=== PATIENT | female | born 1980 | race Caucasian/White ===

== ENCOUNTER 2016-04-07 14:34 | Emergency (ER) | payer SELFPAY ==
--- NOTE | 2016-04-07 14:54 | ER Document Report ---
ED Medical Screen (RME) - General Stated Complaint: ABSCESS Mode of Arrival: Ambulatory Information source: Patient Notes: 36 y/o F presents to ED c/o abscess to left arm over the last 3 weeks. Reports hx of type 2 DM and HTN but has been out of medication for the last 3 weeks. I have greeted and performed a rapid initial assessment of this patient. A comprehensive ED assessment and evaluation of the patient, analysis of test results and completion of the medical decision making process will be conducted by additional ED providers. TRAVEL OUTSIDE OF THE [place] IN LAST 30 DAYS: No - Related Data Allergies/Adverse Reactions: sulfamethoxazole [From Septra] Allergy (Intermediate, Verified 01/23/16 11:01) Hives trimethoprim [From Septra] Allergy (Intermediate, Verified 01/23/16 11:01) Hives Past Medical History - Social History Family history: Reviewed & Not Pertinent - Past Medical History Cardiac Medical History: Reports: Hx Hypertension Pulmonary Medical History: Reports: Hx Asthma Neurological Medical History: Reports: Hx Migraine Endocrine Medical History: Reports: Hx Diabetes Mellitus Type 1, Hx Diabetes Mellitus Type 2 - controlled with diet and insulin, Hx Hypothyroidism Musculoskeltal Medical History: Reports Hx Arthritis, Reports Hx Musculoskeletal Trauma Skin Medical History: Reports Hx Cellulitis Past Surgical History: Reports: Hx Myringotomy - Immunizations Immunizations up to date: Yes Hx Diphtheria, Pertussis, Tetanus Vaccination: Yes Physical Exam - Vital signs Vitals: Temp Pulse Resp BP Pulse Ox 99.2 F 107 H 20 197/118 H 99 04/07/16 14:42 04/07/16 14:42 04/07/16 14:42 04/07/16 14:42 04/07/16 14:42 - General General appearance: Appears well, Alert In distress: None - Respiratory Respiratory status: No respiratory distress - Cardiovascular Rhythm: Regular Pulses: Normal: Radial Normal capillary refill: Yes - Neurological Neuro grossly intact: Yes Cognition: Normal Orientation: AAOx4 [place] Coma Scale Eye Opening: Spontaneous [place] Coma Scale Verbal: Oriented [place] Coma Scale Motor: Obeys Commands [place] Coma Scale Total: 15 Speech: Normal Motor strength normal: LUE, RUE, LLE, RLE Course - Vital Signs Vital signs: Temp Pulse Resp BP Pulse Ox 99.2 F 107 H 20 197/118 H 99 04/07/16 14:42 04/07/16 14:42 04/07/16 14:42 04/07/16 14:42 04/07/16 14:42
[2016-04-07 16:00] LABS: ABSOLUTE BASOPHILS # (AUTO) 0.1 10^3/uL (0.0-0.2); ABSOLUTE EOSINOPHILS # (AUTO) 0.1 10^3/uL (0.0-0.6); ABSOLUTE LYMPHOCYTES (AUTO) 2.4 10^3/uL (0.5-4.7); ABSOLUTE MONOCYTES (AUTO) 0.7 10^3/uL (0.1-1.4); ABSOLUTE NEUT (AUTO) 7.4 10^3/uL (1.7-8.2); BASOPHILS % (AUTO) 0.6 % (0-2); EOSINOPHILS % (AUTO) 1.2 % (0-6); HEMATOCRIT 44.2 % (36.0-47.0); HEMOGLOBIN 14.8 g/dL (12.0-15.5); HGB HCT DIFFERENCE 0.2; LYMPHOCYTES % (AUTO) 22.1 % (13-45); MEAN CORPUSCULAR HEMOGLOBIN 28.9 pg (27.0-33.4); MEAN CORPUSCULAR HGB CONC 33.6 g/dL (32.0-36.0); MEAN CORPUSCULAR VOLUME 86 fl (80-97); MONOCYTES % (AUTO) 6.9 % (3-13); RED BLOOD COUNT 5.14 10^6/uL (3.72-5.28); RED CELL DISTRIBUTION WIDTH 15.4 % (11.5-14.0); SEGMENTED NEUTROPHILS % (AUTO) 69.2 % (42-78); WHITE BLOOD COUNT 10.7 10^3/uL (4.0-10.5)
[2016-04-07 16:12] LABS: APPEARANCE,URINE SLIGHTLY-CLOUDY; BILIRUBIN,URINE NEGATIVE (NEGATIVE); GLUCOSE, URINE >=500 mg/dL (NEGATIVE); KETONES,URINE NEGATIVE (NEGATIVE); LEUKOCYTE ESTERASE,URINE TRACE (NEGATIVE); NITRITE,URINE NEGATIVE (NEGATIVE); PROTEIN,URINE NEGATIVE (NEGATIVE); URINE SPECIFIC GRAVITY 1.031; UROBILINOGEN,URINE NEGATIVE mg/dL (<2.0)
[2016-04-07 16:19] LABS: ALANINE AMINOTRANSFERASE 46 U/L (9-52); ALBUMIN 3.8 g/dL (3.5-5.0); ALKALINE PHOSPHATASE 86 U/L (38-126); ANION GAP 6 (5-19); ASPARTATE AMINO TRANSFERASE 25 U/L (14-36); BILIRUBIN,TOTAL 1.5 mg/dL (0.2-1.3); BLOOD UREA NITROGEN 9 mg/dL (7-20); CALCIUM 9.2 mg/dL (8.4-10.2); CARBON DIOXIDE 30 mmol/L (22-30); CHLORIDE 100 mmol/L (98-107); CREATININE RESULT 0.61 mg/dL (0.52-1.25); GLUCOSE 321 mg/dL (75-110); POTASSIUM 4.5 mmol/L (3.6-5.0); SODIUM 136.3 mmol/L (137-145); TOTAL PROTEIN 6.6 g/dL (6.3-8.2)
[2016-04-07] MEDS ORDERED: INSULIN GLARGINE,HUM.REC.ANLOG 1,000 UNIT/10 ML UNIT SUBCUT ONE (22:40)
[2016-04-07] MEDS ORDERED: HYDROCHLOROTHIAZIDE 12.5 MG CAPSULE PO ONE (22:41)
[2016-04-07] MEDS ORDERED: LISINOPRIL 10 MG TABLET PO ONE (22:41)
[2016-04-07] MEDS ORDERED: METFORMIN HCL 500 MG TABLET PO ONE (22:41)
[2016-04-07 22:49] VITALS: BP 155/111
--- NOTE | 2016-04-07 22:57 | ER Document Report ---
ED Skin Rash/Insect Bite/Abscs - General Chief Complaint: Abscess Stated Complaint: ABSCESS Time seen by provider: 22:52 Mode of Arrival: Ambulatory Information source: Patient Notes: 36-year-old female presents to ED for abscess to the left axilla for over 3 weeks. She is a type II diabetic with high blood pressure but is out of her blood pressure and diabetes medicine for at least 3 weeks. TRAVEL OUTSIDE OF THE [place] IN LAST 30 DAYS: No - HPI Patient complains to provider of: Tender/swollen area Onset: Other - 3 weeks Onset/Duration: Gradual Quality of pain: Throbbing Severity: Moderate Pain Level: 4 Skin Character: Abscess Quality of rash: Painful Identify cause: No Exacerbated by: Movement Relieved by: Denies Similar symptoms previously: Yes - Related Data Allergies/Adverse Reactions: sulfamethoxazole [From Octra] Allergy (Intermediate, Verified 04/07/16 14:53) Hives trimethoprim [From Octra] Allergy (Intermediate, Verified 04/07/16 14:53) Hives Past Medical History - General Information source: Patient - Social History Smoking Status: Current Every Day Smoker Cigarette use (# per day): Yes - half pack per day Chew tobacco use (# tins/day): No Smoking Education Provided: Yes - (2 minutes Drug Abuse: None Occupation: [employer] Lives with: Friend Family History: Arthritis, CAD, CVA, DM, Hyperlipidemia, Hypertension, Malignancy, Thyroid Disfunction Patient has suicidal ideation: No Patient has homicidal ideation: No - Past Medical History Cardiac Medical History: Reports: Hx Hypertension Pulmonary Medical History: Reports: Hx Asthma EENT Medical History: Reports: None Neurological Medical History: Reports: Hx Migraine Endocrine Medical History: Reports: Hx Diabetes Mellitus Type 2 - controlled with diet and insulin, Hx Hypothyroidism Renal/ Medical History: Reports: None Malignancy Medical History: Reports: None GI Medical History: Reports: None Musculoskeltal Medical History: Reports Hx Arthritis, Reports Hx Musculoskeletal Trauma - Fractured ankle and foot Skin Medical History: Reports Hx Cellulitis - Multiple abscesses Psychiatric Medical History: Reports: None Traumatic Medical History: Reports: Hx Fractures - Left ankle and foot Infectious Medical History: Reports: None Past Surgical History: Reports: Hx Myringotomy, Other - Abscess opened in the OR to the groin - Immunizations Immunizations up to date: Yes Hx Diphtheria, Pertussis, Tetanus Vaccination: Yes Hx Pneumococcal Vaccination: 10/13/06 Review of Systems - Review of Systems Constitutional: No symptoms reported EENT: No symptoms reported Cardiovascular: No symptoms reported Respiratory: No symptoms reported Gastrointestinal: No symptoms reported Genitourinary: No symptoms reported Female Genitourinary: No symptoms reported Musculoskeletal: No symptoms reported Skin: Other - Abscess to left axilla Hematologic/Lymphatic: No symptoms reported Neurological/Psychological: No symptoms reported Physical Exam - Vital signs Vitals: Temp Pulse Resp BP Pulse Ox 99.2 F 107 H 20 197/118 H 99 04/07/16 14:42 04/07/16 14:42 04/07/16 14:42 04/07/16 14:42 04/07/16 14:42 Interpretation: Hypertensive - 155/111 but patient states she has not had her blood pressure medicine in 3 weeks,, Tachycardic - 101 patient is in pain from an abscess Notes: Blood pressure 155/111 pulse 101 98.3 pulse ox 97 when I examined her. Patient has not had her diabetes or her blood pressure medicine 3 weeks - General General appearance: Appears well, Alert - HEENT Head: Normocephalic, Atraumatic Eyes: Normal Pupils: PERRL - Respiratory Respiratory status: No respiratory distress Chest status: Nontender Breath sounds: Normal Chest palpation: Normal - Cardiovascular Rhythm: Regular Heart sounds: Normal auscultation Murmur: No - Abdominal Inspection: Normal Distension: No distension Bowel sounds: Normal Tenderness: Nontender Organomegaly: No organomegaly - Back Back: Normal, Nontender - Extremities General upper extremity: Normal inspection, Nontender, Normal color, Normal ROM , Normal temperature General lower extremity: Normal inspection, Nontender, Normal color, Normal ROM , Normal temperature, Normal weight bearing. No: Sherie's sign - Neurological Neuro grossly intact: Yes Cognition: Normal Orientation: AAOx4 [place] Coma Scale Eye Opening: Spontaneous [place] Coma Scale Verbal: Oriented [place] Coma Scale Motor: Obeys Commands [place] Coma Scale Total: 15 Speech: Normal Motor strength normal: LUE, RUE, LLE, RLE Sensory: Normal - Psychological Associated symptoms: Normal affect, Normal mood - Skin Skin Temperature: Warm Skin Moisture: Dry Skin Color: Normal Skin irregularity: Abscess Location of irregularity: Extremities - Left axilla Course - Vital Signs Vital signs: Temp Pulse Resp BP Pulse Ox 98.3 F 101 H 18 155/111 H 97 04/07/16 22:33 04/07/16 22:33 04/07/16 22:15 04/07/16 22:49 04/07/16 22:33 - Laboratory Result Diagrams: 04/07/16 15:42 04/07/16 15:42 Laboratory results interpreted by me: 04/07/16 04/07/16 04/07/16 15:42 15:42 15:42 WBC 10.7 H RDW 15.4 H Sodium 136.3 L Glucose 321 H Total Bilirubin 1.5 H Urine Glucose (UA) >=500 H Urine Blood SMALL H Ur Leukocyte Esterase TRACE H Procedures - Incision and Drainage Left axilla Time completed: 23:20 Type: Simple Anesthetic type: 1% Lidocaine mL's of anesthetic: 5 Blade size: 11 I&D procedure: Other Incision Method: Incision made by scalpel Amount/type of drainage: large amount of purulent drainage foul-smelling Discharge - Discharge Clinical Impression: Abscess of left axilla Disposition: HOME, SELF-CARE Additional Instructions: ABSCESS: You have an abscess (boil). This a pus-forming infection, usually due to staph. Some boils may be left to drain on their own, but most require lancing. From the time the tender lump first appears, it may be three or four days before the abscess is ready to reza. Local heat and rest help at this stage of treatment. An antibiotic may prevent spread of the infection. Once the abscess is opened, packing may be placed into it. This is done so pus is not sealed inside by premature closure of the cavity. The packing will be removed at your follow-up visit or you may be advised to remove it yourself at home. Sometimes this packing must be replaced a few times during healing. The wound will heal with surprisingly little scar. Depending on the size and location of an abscess, healing can take one to four weeks. You may shower and wash the area around the incision site two or three times a day. Antibiotics may be prescribed, but are usually not necessary after an abscess has been drained. If you develop fever, chills, worsening pain, or increasing swelling in the area, call the doctor or return immediately HIGH BLOOD PRESSURE REQUIRING TREATMENT: Your blood pressure is high. This is called "hypertension." Today's reading was ___155/111 (normal is less than 140/90). Your history and exam suggest that this is not a temporary problem. You need treatment of your blood pressure. If left untreated, high blood pressure greatly increases your risk of heart attack and stroke. Please don't ignore this problem. If you have blood pressure medicine but aren't using it regularly, start taking it again. Some simple things you can do to help are: Get some aerobic exercise for at least 20 minutes on a daily basis. (See your doctor before beginning any new exercise program.) Eat a low-fat diet. Lose excess weight. Avoid salty foods and avoid adding salt to any of the foods you eat. Avoid diet pills, decongestants, "energizing" herbs, and other medicines that elevate blood pressure. There are many different medicines that treat blood pressure. If your medication causes unpleasant side effects, call your doctor. There are others you can try. Treating hypertension is a life-long investment in your health. HYDROCHLOROTHIAZIDE: Hydrochlorothiazide is a diuretic medication. Diuretics are often called "water pills." The medicine flushes excess salt and water from the body. Diuretics are used for fluid retention (such as heart failure, cirrhosis, or lung disease) and for blood pressure control. Often hydrochlorothiazide is combined with other medicines in the same pill. Most patients prefer to take the medicine in the morning. Hydrochlorothiazide makes extra urine, which can be a problem if you take the pill at night. Diuretics make you lose potassium. Sometimes a good diet with plenty of fruit is enough to replace it. Sometimes a potassium supplement is necessary. Or, hydrochlorothiazide may be combined with medicines that prevent potassium loss. We usually recommend a blood potassium test in a few weeks. Contact your doctor if you develop extreme fatigue, muscle weakness, lethargy, confusion, or palpitations. HYPERGLYCEMIA (HIGH BLOOD SUGAR): You have an abnormally high blood sugar. Not all high blood sugar requires long-term treatment. High blood sugar can be due to medications, , or the stress of illness. (These cases are "borderline diabetes.") If the doctor feels your high blood sugar might resolve with time, you may not require treatment now. It's very important that you follow through, to see if the blood sugar returns to normal levels. Uncontrolled high blood sugar leads to early heart disease, strokes, nerve damage, eye damage, and kidney damage. Call the physician if there is faintness, excess sleepiness, or very rapid breathing. DIABETES: You have an abnormally high blood sugar, suspicious for diabetes. Not all high blood sugar requires long-term treatment. High blood sugar can be due to medications, , or the stress of illness. (These cases are "borderline diabetes.") If the doctor feels your high blood sugar might get better with time, you may not require treatment now. It's very important that you follow through. Uncontrolled high blood sugar leads to early heart disease, strokes, nerve damage, eye damage, and kidney damage. All diabetics should follow a diet designed to control the blood sugar. Overweight diabetics should exercise regularly and lose weight. If this is not sufficient to control the blood sugar, pills or insulin shots are necessary. Younger people who develop diabetes almost always require insulin daily. Home testing of blood sugars or urine sugar is required. Diabetic teaching is available to help you figure insulin doses and monitor the blood sugar. Call the physician if there is faintness, excess sleepiness, or very rapid breathing. If hypoglycemia (LOW blood sugar) develops, symptoms are shakiness, weakness, sweating, and confusion. In this case, you should eat or drink something with sugar at once. INSULIN: Insulin is a natural hormone that lowers blood sugar. Normal blood sugar prevents complications of diabetes. For most diabetics, insulin is the best way to treat the illness. Be sure you know how to measure the insulin correctly. Insulin is measured in "units." There are three types of insulin: N (NPH or long acting), R (regular or short acting), and L (Lente or very long acting). Be sure you are using the right amount of each type. Insulin must be injected into the fat. You can use the abdomen, upper arms , and thighs. Select a different injection site every time. Wipe the site with alcohol before injecting. When first starting insulin, some adjusting of the insulin dose is necessary. Keep a record of each insulin dose and time of injection, and of the blood sugar and the time you test it. Sometimes insulin can make the blood sugar too low. If you become dizzy, sweaty, shaky, or confused, you may be having a hypoglycemic episode. Immediately use juice or some other sweet food. Call the doctor if the symptoms don't go away. ORAL HYPOGLYCEMIC MEDICATION: Oral hypoglycemics are medicines that lower blood sugar in diabetics. They are not effective for younger diabetics who require insulin. Some brands are tolbutamide, Orinase, glipizide, Glucotrol, glyburide, DiaBeta, Glynase, and Micronase. Some medications can increase or decrease the effect of Diabinese. Examples are Clofibrate (Atromid-S), phenylbutazone (Butazolidin), aspirin, sulfonamides, Coumadin, allopurinol (Zyloprim), probenecid (Benemid), acetazolamide (Diamox), beta blockers, steroids, estrogens, Indocin, INH, Levothyroxine, nicotinic acid, Diflucan, Dilantin, and thiazide diuretics. Be sure your doctor knows all the medicines you take, and talk to your doctor before making any changes in your medicines. If you develop symptoms of shakiness, sweats, and lightheadedness, your blood sugar may have gone too low. Eat or drink a small amount of sweet food. If symptoms don't go away, call your doctor. ANGIOTENSIN CONVERTING ENZYME INHIBITOR MEDICATION: "CAROL inhibitor" drugs are used to lower high blood pressure (or to reduce the "work" of the heart in patients with heart failure). These drugs block an enzyme that makes your blood vessels constrict and makes you retain salt. The result is lower blood pressure. CAROL inhibitors cause few side effects. The most common side effect is a dry nagging cough. Occasionally, lightheadedness may occur while you get used to the medicine. Some patients may retain extra potassium (this is a problem if you are taking potassium supplements, potassium-containing salt substitutes, or a potassium-retaining drug such as triamterene, spironolactone, or amiloride) . If you are taking lithium, the lithium level must be rechecked after starting an CAROL inhibitor. CAROL inhibitors should NOT be used during . Contact the doctor or return if you develop severe lightheadedness, wheeze , weakness, palpitations or other new symptoms. POST INCISION AND DRAINAGE: You have had an incision made to allow drainage of an abscess. The incision must remain open so that pus and debris can drain from the wound. If the abscess cavity is large, packing is placed. This keeps the tissues from collapsing and trapping pus inside, while the body shrinks the cavity. The packing may need to be replaced every day or two. The physician will instruct you on the packing. Keep a bulky dressing over the area. Replace it if it becomes saturated with blood or pus. Do not disturb the packing (if present). You may shower and cleanse the area with gentle soap and warm water two or three times a day. Local warmth may be soothing, and may promote faster healing. Return if you develop high fever or chills, or if you note spreading redness, increasing swelling, or increasing tenderness CEPHALEXIN: The antibiotic you've been prescribed is a member of the cephalosporin class. This type of antibiotic covers a wide variety of infections, including those of the skin, lungs, and urinary tract. It's useful for staph infections. This antibiotic is slightly similar to the penicillin family. In rare cases , a person who is allergic to penicillin will also be allergic to this medication. If you have had a severe allergic reaction to penicillin, and have not taken this antibiotic since that time, notify your doctor. Antibiotics which cover many germs ("broad spectrum" antibiotics) are more likely to cause diarrhea or "yeast" infections. Women prone to vaginal yeast problems may suffer an attack after taking this antibiotic. In infants, oral thrush (white spots "stuck" on the cheek) or yeast diaper rash may result. See your doctor if these problems occur. Call at once if you develop itching, hives , shortness of breath, or lightheadedness. DOXYCYCLINE: Doxycycline (Vibramycin, Doryx) is an antibiotic of the tetracycline family. This type of drug is useful for infections of the respiratory tract and genital tract, and is sometimes used for intestinal infections. Unlike most tetracyclines, doxycycline can be taken with food. It is longer acting, and (usually) less prone to side effects than regular tetracycline. Tetracycline antibiotics can stain immature teeth and SHOULD NOT BE TAKEN BY CHILDREN, NURSING MOTHERS, OR WOMEN. Tetracyclines can make you more prone to sunburn. Abdominal cramping, nausea, and diarrhea are occasional side effects. Women may experience vaginal yeast infections. Call the doctor at once if you develop hives, itching, shortness of breath , or lightheadedness. FOLLOW-UP CARE: Most simple abscesses will not require a follow up visit. If you had packing placed in the abscess, remove it as instructed by the physician. If you have been referred to a physician for follow-up care, call the physicians office for an appointment as you were instructed or within the next two days. If you experience worsening or a significant change in your symptoms, return to the Emergency Department at any time for re-evaluation. Please return to the ED in 24-48 hours to have your abscess reassessed. Prescriptions: Ibuprofen 600 mg PO Q8HP PRN #20 tablet PRN Reason: Doxycycline Hyclate [Vibramycin] 100 mg PO BID #20 capsule Insulin Glargine,Hum.rec.anlog [Lantus] 30 unit SQ DAILY #1 vial Lisinopril/Hydrochlorothiazide [Lisinopril-Hctz 10-12.5 mg Tab] 1 each PO DAILY #30 tablet Metformin HCl [Glucophage] 500 mg PO BID #60 tablet Forms: Elevated Blood Pressure, Smoking Cessation Education, Return to Work Referrals: [facility] [Provider Group] - Follow up as needed
[2016-04-07] MEDS ORDERED: DOXYCYCLINE HYCLATE 100 MG TABLET PO ONE (23:03)
== END 2016-04-07 23:45 | disposition home or self-care (01) ==
LOC: ER 14:34
PROC: 0H9CXZZ Drainage of Left Upper Arm Skin, External Approach (ICD-10-PCS; principal; 2016-04-07)
DX: L02.412 Cutaneous abscess of left axilla (principal); E11.9 Type 2 diabetes mellitus without complications; I10 Essential (primary) hypertension; F17.210 Nicotine dependence, cigarettes, uncomplicated
CPT/HCPCS: 99283; 36415; 87070; 87205; 85025; 81025; 87075; 87077; 80053; 81001; 10060; J1815

== ENCOUNTER 2016-07-08 19:29 | Emergency (ER) | payer SELFPAY ==
[2016-07-08] MEDS ORDERED: AMOXICILLIN TR/POT CLAVULANATE 500-125 MG TAB PO ONE (20:38)
--- NOTE | 2016-07-08 20:39 | ER Document Report ---
HPI - HPI Patient complains to provider of: facial pain, nasal congestion Onset: Other - 2 wwkes Onset/Duration: Worse Quality of pain: Achy Severity: Severe Pain Level: 4 Context: Patient presents to the emergency department with complaints of facial pain , teeth ,ear and head hurts for the past 2 weeks. She reports increasing pain and fever for last couple days. Denies vomiting diarrhea. Denies pain with void. Reports history of sinus infections. Associated Symptoms: Earache, Fever, Sinus pain/drainage Exacerbated by: Denies Relieved by: Denies Similar symptoms previously: Yes Recently seen / treated by doctor: No - REPRODUCTIVE Reproductive: DENIES: : - DERM Skin Color: Normal, [place] Past Medical History - General Information source: Patient Last Menstrual Period: 06/21/16 - Social History Smoking Status: Current Every Day Smoker Cigarette use (# per day): Yes Frequency of alcohol use: None Drug Abuse: None Occupation: helper/driver Family History: Arthritis, CAD, CVA, DM, Hyperlipidemia, Hypertension, Malignancy, Thyroid Disfunction - Past Medical History Cardiac Medical History: Reports: Hx Hypertension Pulmonary Medical History: Reports: Hx Asthma Neurological Medical History: Reports: Hx Migraine Endocrine Medical History: Reports: Hx Diabetes Mellitus Type 1, Hx Diabetes Mellitus Type 2 - controlled with diet and insulin, Hx Hypothyroidism Renal/ Medical History: Denies: Hx Peritoneal Dialysis Musculoskeltal Medical History: Reports Hx Arthritis, Reports Hx Musculoskeletal Trauma - Fractured ankle and foot Skin Medical History: Reports Hx Cellulitis - Multiple abscesses Traumatic Medical History: Reports: Hx Fractures - Left ankle and foot Past Surgical History: Reports: Hx Myringotomy, Other - Abscess opened in the OR to the groin - Immunizations Immunizations up to date: Yes Hx Diphtheria, Pertussis, Tetanus Vaccination: Yes Hx Pneumococcal Vaccination: 10/13/06 Vertical Provider Document - CONSTITUTIONAL Agree With Documented VS: Yes Exam Limitations: No Limitations General Appearance: WD/WN, No Apparent Distress - nontoxic looking - INFECTION CONTROL TRAVEL OUTSIDE OF THE [place] IN LAST 30 DAYS: No - HEENT HEENT: Atraumatic, Normocephalic. negative: Conjuctival Injection, Pharyngeal Exudate, Pharyngeal Tenderness, Pharyngeal Erythema, Tympanic Membrane Red, Tympanic Membrane Bulging Notes: Winces with palpation to her frontal sinuses. - NECK Neck: Normal Inspection, Supple. negative: Lymphadenopathy-Left, Lymphadenopathy-Right - RESPIRATORY Respiratory: Breath Sounds Normal, No Respiratory Distress O2 Sat by Pulse Oximetry: 97 - CARDIOVASCULAR Cardiovascular: Regular Rate, Regular Rhythm - GI/ABDOMEN Gastrointestinal: Abdomen Soft, Abdomen Non-Tender - MUSCULOSKELETAL/EXTREMETIES Musculoskeletal/Extremeties: CARLOS PANDA - NEURO Level of Consciousness: Awake, Alert, Appropriate Motor/Sensory: No Motor Deficit - DERM Integumentary: Warm, Dry Course - Re-evaluation Re-evalutation: 07/08/16 20:45 Patient instructed on Augmentin. Patient also instructed on the importance of taking [id number] nasal decongestant. She was encouraged to stop smoking. Patient also instructed on the importance of fluids. Patient instructed follow-up with primary care provider for recheck within the next week. She verbalized understanding to all instructions. - Vital Signs Vital signs: Temp Pulse Resp BP Pulse Ox 98.5 F 100 16 161/94 H 97 07/08/16 20:16 07/08/16 20:16 07/08/16 20:16 07/08/16 20:16 07/08/16 20:16 Discharge - Discharge Clinical Impression: Frontal sinus pain, Elevated blood pressure reading Condition: Stable Disposition: HOME, SELF-CARE Instructions: Augmentin ([facility]) Additional Instructions: *You have been evaluated for sinus pain, nasal congestion, fever *Increase fluid intake *Use over the counter nasal decongestant *Take medication as prescribed *Monitor your temperature, take Tylenol as indicated *Follow up with a primary care provider within one week *Return to ED for worsening condition, changes, needs Monitor your blood pressure. Your blood pressure was elevated today. This may be because you were anxious, in pain or because you need medication. It is important to follow up with your primary care provider for full evaluation. Prescriptions: Amoxicillin/Potassium Clav [Augmentin 875-125 Tablet] 1 each PO BID #20 tablet Forms: Elevated Blood Pressure
[2016-07-08 21:20] VITALS: BP 137/89
== END 2016-07-08 21:20 | disposition home or self-care (01) ==
LOC: ER 19:29
DX: J34.89 Other specified disorders of nose and nasal sinuses (principal); I10 Essential (primary) hypertension; H92.09 Otalgia, unspecified ear; K08.89 Other specified disorders of teeth and supporting structures; R50.9 Fever, unspecified; E11.9 Type 2 diabetes mellitus without complications; J45.909 Unspecified asthma, uncomplicated; F17.210 Nicotine dependence, cigarettes, uncomplicated
CPT/HCPCS: 99283

== ENCOUNTER 2016-09-13 22:48 | Emergency (ER) | payer SELFPAY ==
[2016-09-13] MEDS ORDERED: PREDNISONE 20 MG TABLET PO ONE (23:01)
[2016-09-13] MEDS ORDERED: IPRATROPIUM/ALBUTEROL 0.5-2.5 MG/3 ML AMPUL NEB ONE ×2 (23:01→23:34)
[2016-09-13] MEDS ORDERED: ALBUTEROL SULFATE 0.083% NEB 2.5 MG/3 ML AMPUL NEB SCH (23:16)
[2016-09-13] MEDS ORDERED: PROCHLORPERAZINE EDISYLATE INJ 10 MG/2 ML VIAL IV ONE (23:45)
[2016-09-13] MEDS ORDERED: KETOROLAC TROMETHAMINE INJ/PF 30 MG/1 ML SDV IV ONE (23:45)
[2016-09-13] MEDS ORDERED: DIPHENHYDRAMINE HCL 50 MG/ML VIAL IV ONE (23:45)
[2016-09-13] MEDS ORDERED: AMOXICILLIN TRIHYDRATE 500 MG CAPSULE PO ONE (23:47)
--- NOTE | 2016-09-13 23:48 | ER Document Report ---
ED General - General Chief Complaint: Asthma Exacerbation Stated Complaint: HEADACHE Time Seen by Provider: 09/13/16 23:34 Notes: Patient is a 36 year old female with past medical history of asthma, migraine headaches and morbid obesity who presents with multiple complaints. She states that for the past 3 days she has been having progressively worsening shortness of breath but feels similar prior asthma exacerbations. She did try her albuterol inhaler without improvement. Nothing worsens her symptoms. She also complains of a migraine headache which is typical for her. She describes as a dull, constant, aching pain to the bitemporal scalp. Lights and sounds worsen the pain. She has been trying khlx-eup-lvrfary medications without improvement of that pain. She also does complain of bilateral ear pain worse on the right. This is been present for the past 2-3 days. She has not seen a primary care doctor regarding the above concerns. TRAVEL OUTSIDE OF THE [place] IN LAST 30 DAYS: No - Related Data Allergies/Adverse Reactions: sulfamethoxazole [From Septra] Allergy (Intermediate, Verified 04/07/16 14:53) Hives trimethoprim [From Septra] Allergy (Intermediate, Verified 04/07/16 14:53) Hives Past Medical History - General Information source: Patient - Social History Smoking Status: Never Smoker Frequency of alcohol use: None Drug Abuse: None Family History: Arthritis, CAD, CVA, DM, Hyperlipidemia, Hypertension, Malignancy, Thyroid Disfunction Patient has suicidal ideation: No Patient has homicidal ideation: No - Past Medical History Cardiac Medical History: Reports: Hx Hypertension Pulmonary Medical History: Reports: Hx Asthma Neurological Medical History: Reports: Hx Migraine Endocrine Medical History: Reports: Hx Diabetes Mellitus Type 1, Hx Diabetes Mellitus Type 2 - controlled with diet and insulin, Hx Hypothyroidism Renal/ Medical History: Denies: Hx Peritoneal Dialysis Musculoskeltal Medical History: Reports Hx Arthritis, Reports Hx Musculoskeletal Trauma - Fractured ankle and foot Skin Medical History: Reports Hx Cellulitis - Multiple abscesses Traumatic Medical History: Reports: Hx Fractures - Left ankle and foot Past Surgical History: Reports: Hx Myringotomy, Other - Abscess opened in the OR to the groin - Immunizations Immunizations up to date: Yes Hx Diphtheria, Pertussis, Tetanus Vaccination: Yes Hx Pneumococcal Vaccination: 10/13/06 Review of Systems - Review of Systems Notes: Constitutional: Negative for fever. HENT: Negative for sore throat. Eyes: Negative for visual changes. Cardiovascular: Negative for chest pain. Respiratory: Positive for shortness of breath. Gastrointestinal: Negative for abdominal pain, vomiting or diarrhea. Genitourinary: Negative for dysuria. Musculoskeletal: Negative for back pain. Skin: Negative for rash. Neurological: Positive for headaches, negative for weakness or numbness. 10 point ROS negative except as marked above and in HPI. Physical Exam - Vital signs Vitals: Temp Pulse Resp BP Pulse Ox 98.9 F 111 H 20 180/108 H 96 09/13/16 22:57 09/13/16 22:57 09/13/16 22:57 09/13/16 22:57 09/13/16 22:57 Interpretation: Tachycardic Notes: PHYSICAL EXAMINATION: GENERAL: Well-appearing, well-nourished and in no acute distress. HEAD: Atraumatic, normocephalic. EYES: Pupils equal round and reactive to light, extraocular movements intact, sclera anicteric, conjunctiva are normal. ENT: nares patent, oropharynx clear without exudates. Moist mucous membranes. NECK: Normal range of motion, supple without lymphadenopathy LUNGS: Breath sounds clear to auscultation bilaterally and equal. Scattered wheezing in all lung william without distress. HEART: Regular rate and rhythm without murmurs ABDOMEN: Soft, nontender, normoactive bowel sounds. No guarding, no rebound. No masses appreciated. EXTREMITIES: Normal range of motion, no pitting or edema. No cyanosis. NEUROLOGICAL: Face symmetric. Tongue protrudes midline. Extraocular motions intact. Pupils are 2 mm and equally reactive. Normal speech, normal gait. 5 out of 5 strength in both the distal and proximal upper and lower extremities bilaterally. Sensation is grossly intact throughout. Finger to nose testing normal. Pronator drift normal. PSYCH: Normal mood, normal affect. SKIN: Warm, Dry, normal turgor, no rashes or lesions noted. Course - Re-evaluation Re-evalutation: 09/13/16 23:46 Patient presents with a mild exacerbation of their baseline asthma. Mild wheezing at time of presentation but vitals do not show significant hypoxemia or tachypnea. No retractions. Patient did clinically improve after receiving nebulizers here in the emergency department. Patient able to ambulate without any respiratory distress. Based on patient's overall reassuring assessment, I believe they are stable for outpatient management with steroids. I do not suspect an acute alternative pathology at this time based on history and exam including acute pulmonary embolus, ACS, pneumothorax, or aortic dissection. Patient also reports that she has had a migraine headache for the past three days. Headache was not maximal in onset, patient has no focal neurologic deficits, no nuchal rigidity, vital signs within normal limits, no papilledema, and patient is overall well in appearance. Based on clinical history and examination I do not suspect an acute subarachnoid hemorrhage, dural venous sinus thrombosis, acute meningitis, or intercranial mass. Given my low clinical suspicion for any acute life-threatening etiology, I do not feel advanced neuro imaging or laboratory testing is indicated at this time. Will proceed with headache cocktail and reassess. Patient also complains of bilateral ear pain which is been present for the past 2 days. She does have a right otitis media and will start on amoxicillin for this. 09/14/16 00:42 Patient has had resolution of her headache. At this time will discharge with return precautions and follow-up recommendations. Verbal discharge instructions given a the bedside and opportunity for questions given. Medication warnings reviewed. Patient is in agreement with this plan and has verbalized understanding of return precautions and the need for primary care follow-up in the next 24-72 hours. - Vital Signs Vital signs: Temp Pulse Resp BP Pulse Ox 98.9 F 89 20 176/88 H 99 09/13/16 22:57 09/14/16 00:52 09/14/16 00:52 09/14/16 00:52 09/14/16 00:52 Discharge - Discharge Clinical Impression: Asthma exacerbation Migraine headache Qualifiers: Migraine type: unspecified Status migrainosus presence: with status migrainosus Intractability: not intractable Qualified Code(s): G43.901 - Migraine, unspecified, not intractable, with status migrainosus Right otitis media Qualifiers: Otitis media type: suppurative Chronicity: acute Recurrence: not specified as recurrent Spontaneous tympanic membrane rupture: without spontaneous rupture Qualified Code(s): H66.001 - Acute suppurative otitis media without spontaneous rupture of ear drum, right ear Condition: Good Disposition: HOME, SELF-CARE Additional Instructions: You were seen for an asthma exacerbation. Your symptoms improved with treatment here in the emergency department. However, it is very important that you return to the emergency department immediately if you began to have worsening difficulty breathing that does not respond to your normal home nebulizers. You are also being sent home on a five-day course of steroids that you should start taking tomorrow. Please also follow closely with your primary care physician. you should also return to emergency department if you develop fever greater than 101, persistent cough, persistent vomiting, pass out, or any other symptoms that are concerning to you. You were seen today for a migraine headache. Please follow-up with your primary care doctor regarding today's ED visit. Return to emergency department immediately if you develop a headache that gets to its maximum severity within 20 minutes of onset, you pass out, you develop weakness, numbness, changes in your vision, become unable to keep any fluids down for more than 12 hours, or develop a fever greater than 100.4 degrees Fahrenheit. If you develop a similar migraine headache in the future I recommend that you immediately take 600 mg of ibuprofen and 50 mg of Benadryl and go to sleep as quickly as possible. This can often prevent your migraine headache from becoming severe. You also being sent home with amoxicillin for a right-sided ear infection. Prescriptions: Amoxicillin 500 mg PO TID #30 capsule
[2016-09-14 00:53] VITALS: BP 176/88
== END 2016-09-14 00:53 | disposition home or self-care (01) ==
LOC: ER 22:48
DX: G43.901 Migraine, unspecified, not intractable, with status migrainosus (principal); J45.901 Unspecified asthma with (acute) exacerbation; H66.001 Acute suppurative otitis media without spontaneous rupture of ear drum, right ear
CPT/HCPCS: 99284; J1200; J1885; J7512; J0780; J7620

== ENCOUNTER 2016-09-17 20:39 | Emergency (ER) | payer SELFPAY ==
[2016-09-17] MEDS ORDERED: METOCLOPRAMIDE HCL INJ/PF 10 MG/2 ML SDV IV ONE (21:29)
[2016-09-17] MEDS ORDERED: KETOROLAC TROMETHAMINE INJ/PF 30 MG/1 ML SDV IV ONE (21:29)
[2016-09-17] MEDS ORDERED: NORMAL SALINE 1000 ML 1,000 ML IV ONE (21:29)
[2016-09-17] MEDS ORDERED: DIPHENHYDRAMINE HCL 50 MG/ML VIAL IV ONE (21:29)
--- NOTE | 2016-09-17 21:31 | ER Document Report ---
ED General - General Chief Complaint: Headache Stated Complaint: HEADACHE Time Seen by Provider: 09/17/16 21:19 Notes: Patient is a 36-year-old female comes emergency department for chief complaint of a headache that she is having intermittently for the past week or so, she states it is in the front and in the temples on both sides and she also has some pains in the left side of her neck and shoulder. She denies neck stiffness , injury, fever, nausea or vomiting. She reports sensitivity to light and sound. She states she has had migraines intermittently in the past. She was started on amoxicillin 4 days ago for an ear infection, denies sinus congestion but also was taking Sudafed. Past medical history of hypertension, type 2 diabetes and insulin-dependent, is currently out of insulin. TRAVEL OUTSIDE OF THE [place] IN LAST 30 DAYS: No - Related Data Allergies/Adverse Reactions: sulfamethoxazole [From Octra] Allergy (Intermediate, Verified 04/07/16 14:53) Hives trimethoprim [From Octra] Allergy (Intermediate, Verified 04/07/16 14:53) Hives Past Medical History - General Information source: Patient - Social History Smoking Status: Never Smoker Frequency of alcohol use: None Drug Abuse: None Lives with: Family Family History: Arthritis, CAD, CVA, DM, Hyperlipidemia, Hypertension, Malignancy, Thyroid Disfunction Patient has suicidal ideation: No Patient has homicidal ideation: No - Past Medical History Cardiac Medical History: Reports: Hx Hypertension Pulmonary Medical History: Reports: Hx Asthma Neurological Medical History: Reports: Hx Migraine Endocrine Medical History: Reports: Hx Diabetes Mellitus Type 1, Hx Diabetes Mellitus Type 2 - controlled with diet and insulin, Hx Hypothyroidism Renal/ Medical History: Denies: Hx Peritoneal Dialysis Musculoskeltal Medical History: Reports Hx Arthritis, Reports Hx Musculoskeletal Trauma - Fractured ankle and foot Skin Medical History: Reports Hx Cellulitis - Multiple abscesses Traumatic Medical History: Reports: Hx Fractures - Left ankle and foot Past Surgical History: Reports: Hx Myringotomy, Other - Abscess opened in the OR to the groin - Immunizations Immunizations up to date: Yes Hx Diphtheria, Pertussis, Tetanus Vaccination: Yes Hx Pneumococcal Vaccination: 10/13/06 Review of Systems - Review of Systems Constitutional: No symptoms reported EENT: No symptoms reported Cardiovascular: No symptoms reported Respiratory: No symptoms reported Gastrointestinal: No symptoms reported Genitourinary: No symptoms reported Female Genitourinary: No symptoms reported Musculoskeletal: No symptoms reported Skin: No symptoms reported Hematologic/Lymphatic: No symptoms reported Neurological/Psychological: See HPI Physical Exam - Vital signs Vitals: Temp Pulse Resp BP Pulse Ox 99 F 100 18 155/109 H 98 09/17/16 20:44 09/17/16 20:44 09/17/16 20:44 09/17/16 20:44 09/17/16 20:44 Interpretation: Normal - General General appearance: Appears well, Alert - HEENT Head: Normocephalic, Atraumatic Eyes: Normal Conjunctiva: Normal Extraocular movements intact: Yes Eyelashes: Normal Pupils: PERRL - Very mild photophobia, otherwise normal eye exam Nasal: Normal Mouth/Lips: Normal Mucous membranes: Normal Pharynx: Normal Neck: Normal - Respiratory Respiratory status: No respiratory distress Chest status: Nontender Breath sounds: Normal Chest palpation: Normal - Cardiovascular Rhythm: Regular. No: Tachycardia Heart sounds: Normal auscultation, S1 appreciated, S2 appreciated Murmur: No - Abdominal Inspection: Normal Distension: No distension Bowel sounds: Normal Tenderness: Nontender Organomegaly: No organomegaly - Back Back: Tender - Mild paracervical tenderness over the left side of the neck, no midline tenderness, no nuchal rigidity, normal back exam otherwise, normal upper and lower extremity range of motion and neurovascular exam. - Extremities General upper extremity: Normal inspection, Nontender, Normal color, Normal ROM , Normal temperature General lower extremity: Normal inspection, Nontender, Normal color, Normal ROM , Normal temperature, Normal weight bearing. No: Sherie's sign - Neurological Neuro grossly intact: Yes Cognition: Normal Orientation: AAOx4 [place] Coma Scale Eye Opening: Spontaneous [place] Coma Scale Verbal: Oriented [place] Coma Scale Motor: Obeys Commands [place] Coma Scale Total: 15 Speech: Normal Motor strength normal: LUE, RUE, LLE, RLE Sensory: Normal - Psychological Associated symptoms: Normal affect, Normal mood - Skin Skin Temperature: Warm Skin Moisture: Dry Skin Color: Normal Course - Re-evaluation Re-evalutation: Patient with mild photophobia on examination but otherwise she is alert and well -appearing. Normal neurological exam. Patient with mild tenderness of the paracervical muscles on the left side. Soft abdomen. BMP shows hyperglycemia with no evidence of acidosis, anion gap is unremarkable , there were no ketones in the urine although there is significantly elevated specific gravity. Patient was given insulin, IV fluids, treatment for headache. On reevaluation patient states that her headache has now resolved and she is ready to leave. Patient states she is waiting for paperwork to obtain her insulin from her job so she will not have to pay for significant amounts for it. She states that she would like it twice for this, after discussion patient will have a heel caser consult placed for her and they will follow up with her in regards to this. Patient states satisfaction with this plan. - Vital Signs Vital signs: Temp Pulse Resp BP Pulse Ox 98.0 F 85 18 139/91 H 98 09/18/16 01:59 09/18/16 01:59 09/18/16 01:59 09/18/16 01:59 09/18/16 01:59 - Laboratory Result Diagrams: 09/17/16 21:50 Laboratory results interpreted by me: 09/17/16 09/17/16 09/17/16 21:50 21:50 22:55 Sodium 135.7 L Carbon Dioxide 21 L Glucose 396 H POC Glucose 335 H Urine Glucose (UA) >=500 H Discharge - Discharge Clinical Impression: Headache Qualifiers: Headache type: unspecified Headache chronicity pattern: episodic headache Intractability: not intractable Qualified Code(s): R51 - Headache Uncontrolled type 2 diabetes mellitus Qualifiers: Diabetes mellitus complication status: with unspecified complications Diabetes mellitus half-way insulin use: with half-way use Qualified Code(s): E11.8 - Type 2 diabetes mellitus with unspecified complications Condition: Stable Disposition: HOME, SELF-CARE Additional Instructions: Fill and take both your insulin in the prescribed medication for headaches. Increase fluid intake because of high blood sugar levels. Follow-up closely for primary care and additional management. Return to emergency department for any concerning or worsening symptoms including return or worsening headache, vomiting, fever, neck stiffness, or any other concerning symptoms. Prescriptions: Butalb/Acetaminophen/Caffeine [Fioricet (50-325-40 mg) Tablet] 1 tab PO Q4HP PRN #30 tab PRN Reason: Forms: Return to Work, Elevated Blood Pressure
[2016-09-17 22:24] LABS: ANION GAP 12 (5-19); BLOOD UREA NITROGEN 10 mg/dL (7-20); CARBON DIOXIDE 21 mmol/L (22-30); CHLORIDE 103 mmol/L (98-107); CREATININE RESULT 0.64 mg/dL (0.52-1.25); GLUCOSE 396 mg/dL (75-110); POTASSIUM 4.4 mmol/L (3.6-5.0); SODIUM 135.7 mmol/L (137-145)
[2016-09-17 22:42] LABS: APPEARANCE,URINE CLEAR; BILIRUBIN,URINE NEGATIVE (NEGATIVE); GLUCOSE, URINE >=500 mg/dL (NEGATIVE); KETONES,URINE NEGATIVE (NEGATIVE); LEUKOCYTE ESTERASE,URINE NEGATIVE (NEGATIVE); NITRITE,URINE NEGATIVE (NEGATIVE); PROTEIN,URINE NEGATIVE (NEGATIVE); URINE SPECIFIC GRAVITY 1.033; UROBILINOGEN,URINE NEGATIVE mg/dL (<2.0)
[2016-09-17] MEDS ORDERED: INSULIN REG, HUMAN 100 UNIT/ML 3 ML VIAL (PYX) SUBCUT ONE (22:58)
[2016-09-18] MEDS ORDERED: NORMAL SALINE 1000 ML 1,000 ML IV ONE (00:02)
[2016-09-18 02:00] VITALS: BP 139/91
== END 2016-09-18 02:10 | disposition home or self-care (01) ==
LOC: ER 20:39
DX: R51 Headache (principal); E11.65 Type 2 diabetes mellitus with hyperglycemia; Z79.4 Long term (current) use of insulin; M54.2 Cervicalgia; M25.512 Pain in left shoulder; H53.149 Visual discomfort, unspecified; H66.90 Otitis media, unspecified, unspecified ear; I10 Essential (primary) hypertension; Z88.1 Allergy status to other antibiotic agents; J45.909 Unspecified asthma, uncomplicated
CPT/HCPCS: 99284; 96374; 96375; 36415; 82962; 81025; 80048; 81001; J1200; J1885; J2765; J1815; J7030 ×2

== ENCOUNTER 2016-09-26 19:32 | Emergency (ER) | payer OTHER ==
[2016-09-26] MEDS ORDERED: PENICILLIN V POTASSIUM 250 MG TABLET PO ONE (20:58)
--- NOTE | 2016-09-26 21:08 | ER Document Report ---
ED Oral Problem - General Mode of Arrival: Ambulatory Information source: Patient TRAVEL OUTSIDE OF THE [place] IN LAST 30 DAYS: No - HPI Patient complains to provider of: Toothache - General Chief Complaint: tootchache Stated Complaint: TOOTH PAIN,HEADACHE Time Seen by Provider: 09/26/16 20:38 Notes: Patient is a 36-year-old female who presents to the emergency department today with complaints of dental pain. Patient states she has been "taking ibuprofen and BC powder" which has not helped her pain. Patient states she feels like there is a "nerve exposed" and that she has been having this pain for approximately 2 weeks. Patient states she has right ear pain. Patient denies any difficulty breathing or handling her secretions. (BILL POMPA) - Related Data Allergies/Adverse Reactions: sulfamethoxazole [From ] Allergy (Intermediate, Verified 04/07/16 14:53) Hives trimethoprim [From ] Allergy (Intermediate, Verified 04/07/16 14:53) Hives Past Medical History - General Information source: Patient - Social History Smoking Status: Never Smoker Cigarette use (# per day): No Frequency of alcohol use: None Drug Abuse: None Lives with: Family Family History: Reviewed & Not Pertinent, Arthritis, CAD, CVA, DM, Hyperlipidemia, Hypertension, Malignancy, Thyroid Disfunction Patient has suicidal ideation: No Patient has homicidal ideation: No - Past Medical History Cardiac Medical History: Reports: Hx Hypertension Pulmonary Medical History: Reports: Hx Asthma Neurological Medical History: Reports: Hx Migraine Endocrine Medical History: Reports: Hx Diabetes Mellitus Type 1, Hx Diabetes Mellitus Type 2 - controlled with diet and insulin, Hx Hypothyroidism Musculoskeltal Medical History: Reports Hx Arthritis, Reports Hx Musculoskeletal Trauma - Fractured ankle and foot Skin Medical History: Reports Hx Cellulitis - Multiple abscesses Traumatic Medical History: Reports: Hx Fractures - Left ankle and foot Past Surgical History: Reports: Hx Myringotomy, Other - Abscess opened in the OR to the groin - Immunizations Immunizations up to date: Yes Hx Diphtheria, Pertussis, Tetanus Vaccination: Yes Hx Pneumococcal Vaccination: 10/13/06 Review of Systems - Review of Systems Constitutional: No symptoms reported EENT: See HPI, Dental problem Cardiovascular: No symptoms reported Respiratory: No symptoms reported Gastrointestinal: No symptoms reported Genitourinary: No symptoms reported Female Genitourinary: No symptoms reported Musculoskeletal: No symptoms reported Skin: No symptoms reported Hematologic/Lymphatic: No symptoms reported Neurological/Psychological: No symptoms reported -: Yes All other systems reviewed and negative Physical Exam - Vital signs Vitals: Temp Pulse Resp BP Pulse Ox 99.2 F 118 H 20 150/83 H 96 09/26/16 19:44 09/26/16 19:44 09/26/16 19:44 09/26/16 19:44 09/26/16 19:44 - Notes Notes: Physical Exam: General: Alert, appears well. HEENT: Normocephalic. Atraumatic. PERRLA. Extraocular movements intact. Oropharynx clear. TMs are clear bilaterally. No posterior pharynx swelling. Airway is patent. Right lower tooth is chipped with dental decay posteriorly. Does not appear to be secondarily infected, no abscess formation. Minimal swelling to right jaw, no trismus or stridor. Patient is handling secretions appropriately. Neck: Supple. Respiratory: No respiratory distress. Abdominal: Normal Inspection. No distension. Extremities: Moves all four extremities. Neurological: Cranial nerves II-XII grossly intact bilaterally. Normal cognition. AAOx4. Normal speech. Psychological: Normal affect. Normal Mood. Skin: Warm. Dry. Normal color. (BILL POMPA) Course - Re-evaluation Re-evalutation: 09/26/16 21:54 Patient presents emergency department with chronic tooth pain. She has been seen and evaluated multiple times in the last 2 weeks and has not followed up with the dentist that she does not have a primary care physician but it shows that she has been to the clinic. She has not called them. She states she did not get any information to follow-up with a dentist but the nurse at the bedside is the nurse who took care of her the last time she was here and specifically remembers giving her outpatient follow-up for dentist. The tooth in question is a right lower tooth which is chipped and decayed posteriorly it is not secondarily infected. She has a mild amount of swelling to the right jaw no trismus stridor or drooling trachea is midline neck is supple heart lungs abdomen are clear. Explained to her that she needs to follow primary care physician and outpatient dental physician as we cannot manage chronic dental problems here. Started her on an antibiotic and instructed her to follow -up with the primary care and outpatient dental facility. She is requesting narcotic medications which are not appropriate in this situation and patient needs to follow-up appropriately with information that we have given and I discussed with her reasons for ED return sooner (MARIA R GONZALEZ) - Vital Signs Vital signs: Temp Pulse Resp BP Pulse Ox 98.4 F 111 H 20 150/104 H 96 09/26/16 21:26 09/26/16 21:26 09/26/16 21:26 09/26/16 21:55 09/26/16 21:26 Discharge - Discharge Clinical Impression: chronic odontalgia Condition: Stable Disposition: HOME, SELF-CARE Instructions: [facility], Toothache ([facility]) Additional Instructions: Toothache Your pain is due to dental decay. The tooth must be repaired in order for you to feel better. You will, therefore, be referred to a dentist. Severe swelling or drainage around a tooth usually means a deep dental abscess. This also requires evaluation and treatment by the dentist, but antibiotics may be prescribed while awaiting dental treatment. You should be rechecked immediately if you develop major swelling of the face, increasing pain, a lump in the jaw or gums, headache, or fever. Prescriptions: Penicillin V Potassium [Penicillin Vk 250 mg Tablet] 250 mg PO Q6 #40 tablet Referrals: [facility] [Provider Group] - Follow up in 3-5 days (call to be seen in follow up in 3-5 days and contact dentist on the list we have given you) Scribe Attestation: 09/26/16 21:53 I personally performed the services described in the documentation reviewed the documentation recorded by my scribe in my presence and it accurately and completely records my words and actions (MARIA R GONZALEZ) Scribe Documentation - Scribe Written by Alivia:: Alivia Ramirez, 09/27/2016 [id number] acting as scribe for :: Raffi
[2016-09-27 01:44] VITALS: BP 150/104
== END 2016-09-26 21:55 | disposition home or self-care (01) ==
LOC: ER 19:32
DX: K08.89 Other specified disorders of teeth and supporting structures (principal)
CPT/HCPCS: 99282

== ENCOUNTER → 2016-10-13 | Outpatient (CLI) | payer OTHER ==
[2016-10-13 11:59] LABS: ALANINE AMINOTRANSFERASE 44 U/L (9-52); ALBUMIN 3.7 g/dL (3.5-5.0); ALKALINE PHOSPHATASE 79 U/L (38-126); ANION GAP 9 (5-19); ASPARTATE AMINO TRANSFERASE 33 U/L (14-36); BILIRUBIN,DIRECT 0.5 mg/dL (0.0-0.4); BLOOD UREA NITROGEN 20 mg/dL (7-20); CALCIUM 9.5 mg/dL (8.4-10.2); CARBON DIOXIDE 28 mmol/L (22-30); CHLORIDE 101 mmol/L (98-107); CHOLESTEROL 188.38 mg/dL (0-200); CREATININE RESULT 0.59 mg/dL (0.52-1.25); Direct HDL 39 mg/dL (>40); GLUCOSE 262 mg/dL (75-110); POTASSIUM 4.3 mmol/L (3.6-5.0); SODIUM 138.2 mmol/L (137-145); TOTAL PROTEIN 6.5 g/dL (6.3-8.2); TRIGLYCERIDES 224 mg/dL (<150)
[2016-10-13 12:10] LABS: DIRECT LDL 125 mg/dL (<100)
[2016-10-13 12:17] LABS: VLDL CHOLESTEROL 44.8 mg/dL (10-31)
== END ==
LOC: CCC 10:12
DX: E11.40 Type 2 diabetes mellitus with diabetic neuropathy, unspecified (principal)
CPT/HCPCS: 36415; 80053; 80061; 83036; 84436; 84443

== ENCOUNTER 2016-10-30 13:00 | Emergency (ER) | payer OTHER ==
[2016-10-30] MEDS ORDERED: ACETAMINOPHEN 325 MG TABLET PO ONE (13:33)
--- NOTE | 2016-10-30 13:41 | ER Document Report ---
ED Medical Screen (RME) - General Chief Complaint: Vomiting Stated Complaint: FEVER VOMITING Time Seen by Provider: 10/30/16 13:24 Mode of Arrival: Ambulatory Information source: Patient Notes: 36-year-old female presents to ED for fever of 102.5 cough dizziness lightheadedness vomiting and back pain. She is a diabetic. Her pulse 122 with a temp of 102.8 pulse ox of 94 blood pressure 149/96. She has a history of asthma, migraines thyroid problems, arthritis, and high blood pressure. Patient also has a history of chronic back pain. Septic workup started and patient will be seen by another physician. I have greeted and performed a rapid initial assessment of this patient. A comprehensive ED assessment and evaluation of the patient, analysis of test results and completion of medical decision making process will be conducted by an additional ED providers. TRAVEL OUTSIDE OF THE [place] IN LAST 30 DAYS: No - Related Data Allergies/Adverse Reactions: sulfamethoxazole [From ] Allergy (Intermediate, Verified 10/30/16 13:06) Hives trimethoprim [From Octra] Allergy (Intermediate, Verified 10/30/16 13:06) Hives Past Medical History - Social History Family history: Reviewed & Not Pertinent - Past Medical History Cardiac Medical History: Reports: Hx Hypertension Pulmonary Medical History: Reports: Hx Asthma Neurological Medical History: Reports: Hx Migraine Endocrine Medical History: Reports: Hx Diabetes Mellitus Type 1, Hx Diabetes Mellitus Type 2 - controlled with diet and insulin, Hx Hypothyroidism Renal/ Medical History: Denies: Hx Peritoneal Dialysis Musculoskeltal Medical History: Reports Hx Arthritis, Reports Hx Musculoskeletal Trauma - Fractured ankle and foot Skin Medical History: Reports Hx Cellulitis - Multiple abscesses Traumatic Medical History: Reports: Hx Fractures - Left ankle and foot Past Surgical History: Reports: Hx Myringotomy, Other - Abscess opened in the OR to the groin - Immunizations Immunizations up to date: Yes Hx Diphtheria, Pertussis, Tetanus Vaccination: Yes Physical Exam - Vital signs Vitals: Pulse Resp BP Pulse Ox 127 H 18 160/107 H 96 10/30/16 13:04 10/30/16 13:04 10/30/16 13:04 10/30/16 13:04 Course - Vital Signs Vital signs: Temp Pulse Resp BP Pulse Ox 127 H 18 160/107 H 96 10/30/16 13:04 10/30/16 13:04 10/30/16 13:04 10/30/16 13:04
[2016-10-30] MEDS: NORMAL SALINE 1000 ML 1,000 ML IV PRN ×2 (13:56→16:31)
--- NOTE | 2016-10-30 14:09 | ER Document Report ---
ED General - General Chief Complaint: Vomiting Stated Complaint: FEVER VOMITING Time Seen by Provider: 10/30/16 13:24 Mode of Arrival: Ambulatory Information source: Patient TRAVEL OUTSIDE OF THE [place] IN LAST 30 DAYS: No - HPI Patient complains to provider of: Fever, vomiting, cough Onset: Yesterday Onset/Duration: Persistent Quality of pain: Achy Severity: Mild Pain Level: 2 Associated symptoms: Body/muscle aches, Chills, Nonproductive cough, Nausea, Vomiting Exacerbated by: Denies Relieved by: Denies Similar symptoms previously: No Recently seen / treated by doctor: No Notes: Patient is a 36-year-old female presenting to the emergency room today complaining of fever that started yesterday, with a nonproductive cough that occasionally leads to vomiting, she reports back pain but no dysuria, she has been tolerating Gatorade at home, has a history of diabetes, asthma and hypertension, no sick contacts, patient denies any abdominal pain, no diarrhea, no chest pain, no headache or stiff neck, denies sore throat or ear pain - Related Data Allergies/Adverse Reactions: sulfamethoxazole [From Septra] Allergy (Intermediate, Verified 10/30/16 13:06) Hives trimethoprim [From Septra] Allergy (Intermediate, Verified 10/30/16 13:06) Hives Past Medical History - General Information source: Patient - Social History Smoking Status: Current Every Day Smoker Family History: Reviewed & Not Pertinent, Arthritis, CAD, CVA, DM, Hyperlipidemia, Hypertension, Malignancy, Thyroid Disfunction - Past Medical History Cardiac Medical History: Reports: Hx Hypertension Pulmonary Medical History: Reports: Hx Asthma Neurological Medical History: Reports: Hx Migraine Endocrine Medical History: Reports: Hx Diabetes Mellitus Type 1, Hx Diabetes Mellitus Type 2 - controlled with diet and insulin, Hx Hypothyroidism Renal/ Medical History: Denies: Hx Peritoneal Dialysis Musculoskeltal Medical History: Reports Hx Arthritis, Reports Hx Musculoskeletal Trauma - Fractured ankle and foot Skin Medical History: Reports Hx Cellulitis - Multiple abscesses Traumatic Medical History: Reports: Hx Fractures - Left ankle and foot Past Surgical History: Reports: Hx Myringotomy, Other - Abscess opened in the OR to the groin - Immunizations Immunizations up to date: Yes Hx Diphtheria, Pertussis, Tetanus Vaccination: Yes Hx Pneumococcal Vaccination: 10/13/06 Review of Systems - Review of Systems Constitutional: See HPI EENT: No symptoms reported Cardiovascular: No symptoms reported Respiratory: See HPI Gastrointestinal: See HPI Genitourinary: No symptoms reported Female Genitourinary: No symptoms reported Musculoskeletal: No symptoms reported Skin: No symptoms reported Hematologic/Lymphatic: No symptoms reported Neurological/Psychological: No symptoms reported -: Yes All other systems reviewed and negative Physical Exam - Vital signs Vitals: Pulse Resp BP Pulse Ox 127 H 18 160/107 H 96 10/30/16 13:04 10/30/16 13:04 10/30/16 13:04 10/30/16 13:04 Interpretation: Normal - General General appearance: Appears well, Alert - HEENT Head: Normocephalic, Atraumatic Eyes: Normal Conjunctiva: Normal Extraocular movements intact: Yes Eyelashes: Normal Pupils: PERRL Pharynx: Normal Neck: Normal - Respiratory Respiratory status: No respiratory distress Chest status: Nontender Breath sounds: Normal Chest palpation: Normal - Cardiovascular Rhythm: Regular, Tachycardia Heart sounds: Normal auscultation Murmur: No - Abdominal Inspection: Normal Distension: No distension Bowel sounds: Normal Tenderness: Nontender Organomegaly: No organomegaly - Back Back: Normal, CVA tenderness - Left side - Extremities General upper extremity: Normal inspection, Nontender, Normal color, Normal ROM , Normal temperature General lower extremity: Normal inspection, Nontender, Normal color, Normal ROM , Normal temperature, Normal weight bearing. No: Sherie's sign - Neurological Neuro grossly intact: Yes Cognition: Normal Orientation: AAOx4 [place] Coma Scale Eye Opening: Spontaneous [place] Coma Scale Verbal: Oriented [place] Coma Scale Motor: Obeys Commands [place] Coma Scale Total: 15 Speech: Normal Motor strength normal: LUE, RUE, LLE, RLE Sensory: Normal - Psychological Associated symptoms: Normal affect, Normal mood - Skin Skin Temperature: Warm Skin Moisture: Dry Skin Color: Normal Course - Re-evaluation Re-evalutation: 10/30/16 19:17 Patient resting comfortably, reports feeling much better, lab and imaging findings were discussed with patient at bedside which are relatively unremarkable except for a mild urinary tract infection, she was given a dose of IV antibiotics in the emergency room and will be started on some at home as well , advised to drink plenty of fluids, take Tylenol or Motrin as needed for fever or pain, follow-up with her primary care provider or return if symptoms worsen, patient acknowledges understanding and agreement with this plan - Vital Signs Vital signs: Temp Pulse Resp BP Pulse Ox 101.7 F H 127 H 17 124/79 97 10/30/16 18:23 10/30/16 13:04 10/30/16 18:19 10/30/16 18:19 10/30/16 18:19 - Laboratory Result Diagrams: 10/30/16 13:45 10/30/16 13:45 Laboratory results interpreted by me: 10/30/16 10/30/16 10/30/16 13:45 13:45 13:45 RDW 14.5 H Seg Neutrophils % 79.9 H Lymphocytes % 11.4 L VBG pH 7.44 H Sodium 133.1 L Chloride 94 L Glucose 291 H POC Glucose Total Bilirubin 2.0 H Direct Bilirubin 0.8 H Urine Protein Urine Glucose (UA) Urine Blood Urine Urobilinogen Ur Leukocyte Esterase 10/30/16 10/30/16 13:59 14:10 RDW Seg Neutrophils % Lymphocytes % VBG pH Sodium Chloride Glucose POC Glucose 296 H Total Bilirubin Direct Bilirubin Urine Protein 30 H Urine Glucose (UA) 50 H Urine Blood LARGE H Urine Urobilinogen 4.0 H Ur Leukocyte Esterase SMALL H - Diagnostic Test Radiology reviewed: Image reviewed, Reports reviewed Discharge - Discharge Clinical Impression: Urinary tract infection Qualifiers: Urinary tract infection type: site unspecified Hematuria presence: without hematuria Qualified Code(s): N39.0 - Urinary tract infection, site not specified Condition: Stable Disposition: HOME, SELF-CARE Instructions: Urinary Tract Infection ([facility]), Cephalexin ([facility]) Additional Instructions: Follow up with your primary care provider in one to 2 days. Return to the emergency room immediately if symptoms worsen or any additional concerns. Prescriptions: Cephalexin Monohydrate [Keflex 500 mg Capsule] 500 mg PO BID #20 capsule Forms: Return to Work Referrals: [facility] [Primary Care Provider] - Follow up as needed
[2016-10-30 14:21] LABS: VENOUS BLOOD BASE EXCESS 4.9 mmol/L; VENOUS BLOOD HCO3 29.9 mmol/L (20-32); VENOUS BLOOD PH 7.44 (7.30-7.42)
[2016-10-30 14:25] LABS: PROTHROMBIN TIME 14.3 SEC (11.4-15.4)
[2016-10-30 14:27] LABS: ABSOLUTE MONOCYTES (AUTO) 0.7 10^3/uL (0.1-1.4); ABSOLUTE NEUT (AUTO) 7.1 10^3/uL (1.7-8.2); BASOPHILS % (AUTO) 0.4 % (0-2); HEMOGLOBIN 15.1 g/dL (12.0-15.5); HGB HCT DIFFERENCE 1.3; LYMPHOCYTES % (AUTO) 11.4 % (13-45); MEAN CORPUSCULAR HEMOGLOBIN 29.3 pg (27.0-33.4); MEAN CORPUSCULAR HGB CONC 34.4 g/dL (32.0-36.0); MEAN CORPUSCULAR VOLUME 85 fl (80-97); MONOCYTES % (AUTO) 8.3 % (3-13); RED BLOOD COUNT 5.16 10^6/uL (3.72-5.28); RED CELL DISTRIBUTION WIDTH 14.5 % (11.5-14.0); SEGMENTED NEUTROPHILS % (AUTO) 79.9 % (42-78); WHITE BLOOD COUNT 8.9 10^3/uL (4.0-10.5)
[2016-10-30 14:32] LABS: APPEARANCE,URINE CLOUDY; BILIRUBIN,URINE NEGATIVE (NEGATIVE); GLUCOSE, URINE 50 mg/dL (NEGATIVE); KETONES,URINE NEGATIVE (NEGATIVE); LEUKOCYTE ESTERASE,URINE SMALL (NEGATIVE); NITRITE,URINE NEGATIVE (NEGATIVE); PROTEIN,URINE 30 mg/dL (NEGATIVE); URINE SPECIFIC GRAVITY 1.015
[2016-10-30 14:37] LABS: ALANINE AMINOTRANSFERASE 40 U/L (9-52); ALKALINE PHOSPHATASE 71 U/L (38-126); ANION GAP 13 (5-19); ASPARTATE AMINO TRANSFERASE 24 U/L (14-36); BILIRUBIN,DIRECT 0.8 mg/dL (0.0-0.4); BLOOD UREA NITROGEN 12 mg/dL (7-20); CALCIUM 9.2 mg/dL (8.4-10.2); CARBON DIOXIDE 26 mmol/L (22-30); CHLORIDE 94 mmol/L (98-107); GLUCOSE 291 mg/dL (75-110); POTASSIUM 4.1 mmol/L (3.6-5.0); SODIUM 133.1 mmol/L (137-145); TOTAL PROTEIN 6.9 g/dL (6.3-8.2)
--- NOTE | 2016-10-30 15:04 | RADIOLOGY REPORT (SQ) ---
EXAM DESCRIPTION: CHEST PA/LAT COMPLETED DATE/TIME: 10/30/2016 2:34 pm REASON FOR STUDY: cough congestion fever COMPARISON: Two-view chest 01/23/2016, 01/16/2016, 07/25/2015, 07/22/2014 EXAM PARAMETERS: NUMBER OF VIEWS: two views TECHNIQUE: Digital Frontal and Lateral radiographic views of the chest acquired. RADIATION DOSE: NA LIMITATIONS: Obese patient FINDINGS: LUNGS AND PLEURA: No opacities, masses or pneumothorax. No pleural effusion. MEDIASTINUM AND HILAR STRUCTURES: No masses or contour abnormalities. HEART AND VASCULAR STRUCTURES: Heart normal size. No evidence for failure. BONES: No acute findings. HARDWARE: None in the chest. OTHER: No other significant finding. IMPRESSION: NO SIGNIFICANT RADIOGRAPHIC FINDING IN THE CHEST. TECHNICAL DOCUMENTATION: JOB ID: [id number]- All Rights Reserved
[2016-10-30] MEDS ORDERED: NORMAL SALINE 1000 ML 1,000 ML IV PRN (16:05)
[2016-10-30] MEDS ORDERED: CEFTRIAXONE INJ 1000 MG VIAL IV ONE (16:05)
[2016-10-30] MEDS ORDERED: IBUPROFEN 800 MG TABLET PO ONE (18:23)
--- NOTE | 2016-10-30 18:37 | RADIOLOGY REPORT (SQ) ---
EXAM DESCRIPTION: CT ABD/PELVIS WITH IV ONLY COMPLETED DATE/TIME: 10/30/2016 6:12 pm REASON FOR STUDY: nausea/vomiting/fever COMPARISON: None. TECHNIQUE: CT scan of the abdomen and pelvis performed using helical scanning technique with dynamic intravenous contrast injection. No oral contrast. Images reviewed with lung, soft tissue, and bone windows. Reconstructed coronal and sagittal MPR images reviewed. Delayed images for evaluation of the urinary system also acquired. All images stored on PACS. All CT scanners at this facility use dose modulation, iterative reconstruction, and/or weight based d osing when appropriate to reduce radiation dose to as low as reasonably achievable (ALARA). [facility]: Dose Right [facility]: CareDose [facility]: Dose Right [facility]: Teradose 4D [facility]: [email or web address] CONTRAST TYPE AND DOSE: contrast/concentration: Isovue 370.00 mg/ml; Total Contrast Delivered: 100.0 ml; Total Saline Delivered: 72.0 ml RENAL FUNCTION: Creatinine 0.7 BUN 12 RADIATION DOSE: Up-to-date CT equipment and radiation dose reduction techniques were employed. CTDIv ol: 29.9 - 30.0 mGy. DLP: 3379 mGy-cm.. LIMITATIONS: None. FINDINGS: LOWER CHEST: There is a 6 mm subpleural nodule on the right on image 2 series 4. LIVER: Normal size. No masses. No dilated ducts. SPLEEN: Splenomegaly. PANCREAS: No masses. No significant calcifications. No adjacent inflammation or peripancreatic fluid collections. Pancreatic duct not dilated. GALLBLADDER: No identified stones by CT criteria. No inflammatory changes to suggest cholecystitis. ADRENAL GLANDS: No significant masses or asymmetry. RIGHT KIDNEY AND URETER: No solid masses. No significant calcifications. No hydronephrosis or hyd roureter. LEFT KIDNEY AND URETER: No solid masses. No significant calcifications. No hydronephrosis or hydr oureter. AORTA AND VESSELS: No aneurysm. No dissection. Renal arteries, SMA, celiac without stenosis. RETROPERITONEUM: No retroperitoneal adenopathy, hemorrhage or masses. BOWEL AND PERITONEAL CAVITY: No masses or inflammatory changes. No free fluid or peritoneal masses. APPENDIX: Normal. PELVIS: No mass. No free fluid. Normal bladder. ABDOMINAL WALL: No masses. No hernias. BONES: No significant or acute findings. OTHER: No other significant finding. IMPRESSION: 1. There is small subpleural nodule in the right lung. 2. Splenomegaly. TECHNICAL DOCUMENTATION: JOB ID: [id number] Quality ID # [id number]: Final reports with documentation of one or more dose reduction techniques (e.g., Au tomated exposure control, adjustment of the mA and/or kV according to patient size, use of iterative reconstruction technique) 2010 [employer]- All Rights Reserved
[2016-10-30] MEDS ORDERED: ONDANSETRON ODT 4 MG TAB (6 TAB/DSPK) PO PRN (19:24)
[2016-10-30 19:54] VITALS: BP 126/76
== END 2016-10-30 19:52 | disposition home or self-care (01) ==
LOC: ER 13:00
DX: N39.0 Urinary tract infection, site not specified (principal); M79.1 Myalgia; R11.2 Nausea with vomiting, unspecified; R50.9 Fever, unspecified; R05 Cough; F17.200 Nicotine dependence, unspecified, uncomplicated; I10 Essential (primary) hypertension; E11.9 Type 2 diabetes mellitus without complications; E03.9 Hypothyroidism, unspecified; Z88.3 Allergy status to other anti-infective agents
CPT/HCPCS: 99284; 96361; 96365; 36415; 87040; 87070; 87086; 87880; 82962; 85025; 85610; 87077; 87088; 80053; 81001; 87186; 82803; 83605; 71020; 74177; J0696; J7030

== ENCOUNTER 2016-10-31 20:31 | Emergency (ER) | payer OTHER ==
[2016-10-31] MEDS ORDERED: CEFTRIAXONE 1 GM/D5W RTU 1 GM/50 ML RTUPB IV ONE (23:09)
--- NOTE | 2016-10-31 23:12 | ER Document Report ---
ED General - General Chief Complaint: Fever Stated Complaint: FEVER/DIZZINESS Time Seen by Provider: 10/31/16 22:56 Notes: 36-year-old female with history of diabetes presents for recheck after being diagnosed with UTI yesterday. She has had some dry cough and fever at home which she feels is breaking at this point. She was contacted by nursing staff and told to come back if her fever did not break. She complains of left back pain. Some dizziness particularly when she is up. Not vomiting currently. No diarrhea. No other associated symptoms otherwise except generalized malaise and aching. 1 of 2 blood cultures showed gram-negative rods. Urine culture showed gram-negative rods. TRAVEL OUTSIDE OF THE [place] IN LAST 30 DAYS: No - Related Data Allergies/Adverse Reactions: sulfamethoxazole [From ] Allergy (Intermediate, Verified 10/31/16 20:52) Hives trimethoprim [From ] Allergy (Intermediate, Verified 10/31/16 20:52) Hives Past Medical History - Social History Smoking Status: Unknown if Ever Smoked Family History: Reviewed & Not Pertinent, Arthritis, CAD, CVA, DM, Hyperlipidemia, Hypertension, Malignancy, Thyroid Disfunction - Past Medical History Cardiac Medical History: Reports: Hx Hypertension Pulmonary Medical History: Reports: Hx Asthma Neurological Medical History: Reports: Hx Migraine Endocrine Medical History: Reports: Hx Diabetes Mellitus Type 1, Hx Diabetes Mellitus Type 2 - controlled with diet and insulin, Hx Hypothyroidism Renal/ Medical History: Denies: Hx Peritoneal Dialysis Musculoskeltal Medical History: Reports Hx Arthritis, Reports Hx Musculoskeletal Trauma - Fractured ankle and foot Skin Medical History: Reports Hx Cellulitis - Multiple abscesses Traumatic Medical History: Reports: Hx Fractures - Left ankle and foot Past Surgical History: Reports: Hx Myringotomy, Other - Abscess opened in the OR to the groin - Immunizations Immunizations up to date: Yes Hx Diphtheria, Pertussis, Tetanus Vaccination: Yes Hx Pneumococcal Vaccination: 10/13/06 Review of Systems - Review of Systems -: Yes All other systems reviewed and negative Physical Exam - Vital signs Vitals: Temp Pulse Resp BP Pulse Ox 100.0 F 90 16 141/91 H 94 10/31/16 20:52 10/31/16 20:52 10/31/16 20:52 10/31/16 20:52 10/31/16 20:52 - Notes Notes: GENERAL: VS as per nursing doc. Well-appearing, well-nourished and in no acute distress. HEAD: Atraumatic, normocephalic. EYES: Pupils equal round and reactive to light, extraocular movements intact, sclera anicteric, no conjunctival injection or discharge. ENT: Nares patent, oropharynx clear without exudates, moist mucous membranes. NECK: Normal range of motion, supple without lymphadenopathy. LUNGS: Breath sounds clear to auscultation bilaterally and equal. No wheezes rales or rhonchi. HEART: Regular rate and rhythm without murmurs. ABDOMEN: Soft, mild right mid to upper quadrant tenderness to palpation, normoactive bowel sounds. No guarding, no rebound. No masses appreciated. No [place] sign. BACK: Mild left CVA tenderness. EXTREMITIES: Normal range of motion, no calf tenderness, no edema. NEUROLOGICAL: Cranial nerves grossly intact. Normal speech. Normal sensory and motor exams. No gross cerebellar abnormalities. No meningeal signs PSYCH: Normal mood, normal affect. SKIN: Warm, dry, normal turgor, no lesions noted. Course - Re-evaluation Re-evalutation: 11/01/16 01:22 Patient has only been back on her diabetic medications for a couple weeks and is unsure where her sugar normally runs. She looks great at this point. She is feeling better. She has not worsened in general. She has been given another dose of Rocephin which is what we would do if she was hospitalized. She is comfortable going home but I will add on Cipro 500 mg as this seems to be left-sided pyelonephritis (although no perinephric stranding was noted ) to try to get a little better kidney penetration. She understands it is imperative she return if she is getting sicker at all, repetitive vomiting, general feeling worse as she did have one blood culture show gram-negative rods. I will have the call back nurse check on her on Thursday as I will be out of town. By tomorrow, Thursday, we should have cultures finalized. She verbalizes understanding of this. I will speak to prescribe her 2 days of pain medication and Phenergan. - Vital Signs Vital signs: Temp Pulse Resp BP Pulse Ox 100.0 F 90 16 141/91 H 94 10/31/16 20:52 10/31/16 20:52 10/31/16 20:52 10/31/16 20:52 10/31/16 20:52 - Laboratory Result Diagrams: 10/31/16 23:45 10/31/16 23:45 Laboratory results interpreted by me: 10/31/16 10/31/16 23:45 23:45 RDW 14.7 H Sodium 136.6 L Chloride 96 L Est GFR (Non-Af Amer) 59 L Glucose 261 H Discharge - Discharge Additional Instructions: Pyelonephritis Your evaluation shows evidence of pyelonephritis. This is an infection in the kidney. Typical symptoms are fever, pain in the flank, pain on urination, and frequent urination. Many cases of pyelonephritis can be treated at home. Hospital care may be necessary for patients who are very ill, or elderly or . Pyelonephritis is treated with antibiotics. Be sure to take all the medication as prescribed. Drink plenty of liquids (about three quarts per day) . You may take acetaminophen for fever. You should feel significantly improved within two days. You should have a recheck of your urine in about one week to insure that the infection is gone. Return for a re-examination if your symptoms worsen in any way -- such as high fever, shaking chills, severe weakness or dizziness, severe pain, or inability to pass your urine. Push non-caffeinated fluids and stay hydrated. As directed, ensure you return immediately if you feel you are worsening at all, repetitive vomiting or other change. Take all of the ciprofloxacin until gone. The pain medication has Tylenol 325 mg in it so do not take too much additional. Prescriptions: Hydrocodone/Acetaminophen [Dulzura 5-325 mg Tablet] 1 tab PO Q4HP PRN #14 tablet PRN Reason: For Pain Promethazine HCl [Phenergan 25 mg Tablet] 1 tab PO Q4HP PRN #10 tablet PRN Reason: Ciprofloxacin HCl [Cipro 500 mg Tablet] 500 mg PO BID #20 tablet Referrals: [facility] [Primary Care Provider] - 11/03/16
[2016-10-31] MEDS ORDERED: NORMAL SALINE 1000 ML 1,000 ML IV ONE (23:15)
[2016-10-31 23:56] LABS: ABSOLUTE BASOPHILS # (AUTO) 0.1 10^3/uL (0.0-0.2); ABSOLUTE EOSINOPHILS # (AUTO) 0.1 10^3/uL (0.0-0.6); ABSOLUTE LYMPHOCYTES (AUTO) 2.7 10^3/uL (0.5-4.7); ABSOLUTE MONOCYTES (AUTO) 0.9 10^3/uL (0.1-1.4); ABSOLUTE NEUT (AUTO) 3.6 10^3/uL (1.7-8.2); BASOPHILS % (AUTO) 0.9 % (0-2); EOSINOPHILS % (AUTO) 0.7 % (0-6); HEMATOCRIT 42.9 % (36.0-47.0); HEMOGLOBIN 14.9 g/dL (12.0-15.5); HGB HCT DIFFERENCE 1.8; LYMPHOCYTES % (AUTO) 37.1 % (13-45); MEAN CORPUSCULAR HEMOGLOBIN 29.5 pg (27.0-33.4); MEAN CORPUSCULAR HGB CONC 34.8 g/dL (32.0-36.0); MEAN CORPUSCULAR VOLUME 85 fl (80-97); MONOCYTES % (AUTO) 12.6 % (3-13); RED BLOOD COUNT 5.05 10^6/uL (3.72-5.28); RED CELL DISTRIBUTION WIDTH 14.7 % (11.5-14.0); SEGMENTED NEUTROPHILS % (AUTO) 48.7 % (42-78); WHITE BLOOD COUNT 7.3 10^3/uL (4.0-10.5)
[2016-11-01 00:04] LABS: ANION GAP 11 (5-19); BLOOD UREA NITROGEN 14 mg/dL (7-20); CALCIUM 9.1 mg/dL (8.4-10.2); CARBON DIOXIDE 30 mmol/L (22-30); CHLORIDE 96 mmol/L (98-107); CREATININE RESULT 1.06 mg/dL (0.52-1.25); GLUCOSE 261 mg/dL (75-110); POTASSIUM 3.6 mmol/L (3.6-5.0); SODIUM 136.6 mmol/L (137-145)
[2016-11-01] MEDS ORDERED: MORPHINE SULFATE 10 MG/ML INJ IV ONE (00:22)
[2016-11-01] MEDS ORDERED: ONDANSETRON HCL INJ/PF 4 MG/2 ML SDV IV ONE (00:22)
[2016-11-01] MEDS ORDERED: CIPROFLOXACIN HCL 500 MG TABLET PO ONE (01:19)
[2016-11-01 01:51] VITALS: BP 143/84
== END 2016-11-01 01:49 | disposition home or self-care (01) ==
LOC: ER 20:31
DX: N12 Tubulo-interstitial nephritis, not specified as acute or chronic (principal); R50.9 Fever, unspecified; R42 Dizziness and giddiness; R05 Cough
CPT/HCPCS: 99283; 96361; 96375; 96365; 36415; 85025; 80048; J2270; J2405; J7030; J0696

== ENCOUNTER 2016-12-06 13:53 | Emergency (ER) | payer OTHER ==
[2016-12-06] MEDS ORDERED: CEFTRIAXONE INJ 250 MG VIAL IM ONE (14:07)
[2016-12-06] MEDS ORDERED: METRONIDAZOLE 500 MG TABLET PO ONE (14:07)
[2016-12-06] MEDS ORDERED: TETANUS/DIPHTHERIA TOX-ADULT 0.5 ML SYR (>=7YO) IM ONE (14:07)
[2016-12-06] MEDS ORDERED: LIDOCAINE 1% INJ-PF (10 MG/ML) 30 ML SDV INJ ONE (14:07)
[2016-12-06] MEDS ORDERED: LEVONORGESTREL 1.5 MG TABLET (1 TAB/ER-USE) PO ONE (14:07)
[2016-12-06] MEDS ORDERED: AZITHROMYCIN 250 MG TABLET PO ONE (14:07)
[2016-12-06] MEDS ORDERED: PROMETHAZINE HCL 25 MG TABLET PO ONE (14:07)
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
[2016-12-06] MEDS ORDERED: LISINOPRIL 10 MG TABLET PO ONE (14:42)
[2016-12-06] MEDS ORDERED: HYDROCHLOROTHIAZIDE 12.5 MG CAPSULE PO ONE ×2 (14:42→18:15)
[2016-12-06 18:24] VITALS: BP 127/84
== END 2016-12-06 18:24 | disposition home or self-care (01) ==
LOC: ER 13:53
DX: S19.9XXA Unspecified injury of neck, initial encounter (principal); T74.21XA Adult sexual abuse, confirmed, initial encounter; S20.229A Contusion of unspecified back wall of thorax, initial encounter; S10.93XA Contusion of unspecified part of neck, initial encounter; R10.2 Pelvic and perineal pain; K62.89 Other specified diseases of anus and rectum; Y04.2XXA Assault by strike against or bumped into by another person, initial encounter; Y07.9 Unspecified perpetrator of maltreatment and neglect; I10 Essential (primary) hypertension; E11.9 Type 2 diabetes mellitus without complications; Z79.899 Other long term (current) drug therapy
CPT/HCPCS: 99285

== ENCOUNTER 2017-01-18 15:21 | Emergency (ER) | payer OTHER ==
--- NOTE | 2017-01-18 15:43 | ER Document Report ---
ED Medical Screen (RME) - General Chief Complaint: Abscess Stated Complaint: ABSCESSES/GROIN AND VAGINAL AREAS Time Seen by Provider: 01/18/17 15:42 Mode of Arrival: Ambulatory Information source: Patient TRAVEL OUTSIDE OF THE [place] IN LAST 30 DAYS: No - HPI Patient complains to provider of: abscesses in groin area Onset: Yesterday - pt. with c/o 2 abscesses in inguinal area which has gotten larger and more painful in the past day - Related Data Allergies/Adverse Reactions: sulfamethoxazole [From Octra] Allergy (Intermediate, Verified 12/06/16 14:00) Hives trimethoprim [From Octra] Allergy (Intermediate, Verified 12/06/16 14:00) Hives Past Medical History - Social History Family history: Reviewed & Not Pertinent - Past Medical History Cardiac Medical History: Reports: Hx Hypertension Pulmonary Medical History: Reports: Hx Asthma Neurological Medical History: Reports: Hx Migraine Endocrine Medical History: Reports: Hx Diabetes Mellitus Type 1, Hx Diabetes Mellitus Type 2 - controlled with diet and insulin, Hx Hypothyroidism Renal/ Medical History: Denies: Hx Peritoneal Dialysis Musculoskeltal Medical History: Reports Hx Arthritis, Reports Hx Musculoskeletal Trauma - Fractured ankle and foot Skin Medical History: Reports Hx Cellulitis - Multiple abscesses Traumatic Medical History: Reports: Hx Fractures - Left ankle and foot Past Surgical History: Reports: Hx Myringotomy, Other - Abscess opened in the OR to the groin - Immunizations Immunizations up to date: Yes Hx Diphtheria, Pertussis, Tetanus Vaccination: Yes Physical Exam - Vital signs Vitals: Temp Pulse BP Pulse Ox 99.1 F 109 H 154/96 H 97 01/18/17 15:39 01/18/17 15:39 01/18/17 15:39 01/18/17 15:39 Course - Vital Signs Vital signs: Temp Pulse Resp BP Pulse Ox 99.1 F 109 H 154/96 H 97 01/18/17 15:39 01/18/17 15:39 01/18/17 15:39 01/18/17 15:39
[2017-01-18] MEDS ORDERED: LIDOCAINE 1% INJ (10 MG/ML) 10 ML MDV INJ ONE (17:51)
[2017-01-18] MEDS ORDERED: LIDOCAINE 1% INJ-PF (10 MG/ML) 30 ML SDV INJ ONE (18:06)
--- NOTE | 2017-01-18 18:42 | ER Document Report ---
ED General - General Chief Complaint: Abscess Stated Complaint: ABSCESSES/GROIN AND VAGINAL AREAS Time Seen by Provider: 01/18/17 15:42 Mode of Arrival: Ambulatory Information source: Patient Notes: Patient is a 36-year-old morbidly obese white female comes emergency room complaining of 2 abscesses both are on the external portion of her genitalia both have been approximately 2-3 weeks. Patient has a history of abscesses in this area and she attempted to use moist heat and pop them on her own but they have only gotten worse. Patient states the one on the right is much bigger and more painful and seems to be more involved and deeper. The one on the left side has been opened and popped several times but seems to keep coming back to a round firm mass. Patient states that she has had a history of these in the past and and on 2 occasions had to go to OR for clean out. As stated she is morbidly obese and she is also a diabetic. Patient also shaves in the vaginal area. She is known hypertensive insulin-dependent diabetic and has a history of these abscesses. TRAVEL OUTSIDE OF THE [place] IN LAST 30 DAYS: No - HPI Patient complains to provider of: Groin abscess Onset: Other - 2-3 weeks Onset/Duration: Gradual, Persistent, Worse Quality of pain: Achy Severity: Moderate Pain Level: 3 Associated symptoms: Nausea Exacerbated by: Sitting, Walking Relieved by: Denies Similar symptoms previously: Yes Recently seen / treated by doctor: No - Related Data Allergies/Adverse Reactions: sulfamethoxazole [From Septra] Allergy (Intermediate, Verified 01/18/17 16:47) Hives trimethoprim [From Septra] Allergy (Intermediate, Verified 01/18/17 16:47) Hives Past Medical History - General Information source: Patient - Social History Smoking Status: Current Every Day Smoker Cigarette use (# per day): Yes - Half a pack to 1 pack a day Chew tobacco use (# tins/day): No Smoking Education Provided: Yes Frequency of alcohol use: Rare Drug Abuse: None Lives with: Family Family History: Reviewed & Not Pertinent, Arthritis, CAD, CVA, DM, Hyperlipidemia, Hypertension, Malignancy, Thyroid Disfunction Patient has suicidal ideation: No Patient has homicidal ideation: No - Past Medical History Cardiac Medical History: Reports: Hx Hypertension Pulmonary Medical History: Reports: Hx Asthma Neurological Medical History: Reports: Hx Migraine Endocrine Medical History: Reports: Hx Diabetes Mellitus Type 1, Hx Diabetes Mellitus Type 2 - controlled with diet and insulin, Hx Hypothyroidism Renal/ Medical History: Denies: Hx Peritoneal Dialysis Musculoskeltal Medical History: Reports Hx Arthritis, Reports Hx Musculoskeletal Trauma - Fractured ankle and foot Skin Medical History: Reports Hx Cellulitis - Multiple abscesses Traumatic Medical History: Reports: Hx Fractures - Left ankle and foot Past Surgical History: Reports: Hx Myringotomy, Other - Abscess opened in the OR to the groin - Immunizations Immunizations up to date: Yes Hx Diphtheria, Pertussis, Tetanus Vaccination: Yes Hx Pneumococcal Vaccination: 10/13/06 Review of Systems - Review of Systems Constitutional: No symptoms reported EENT: No symptoms reported Cardiovascular: No symptoms reported Respiratory: No symptoms reported Gastrointestinal: No symptoms reported Genitourinary: No symptoms reported Female Genitourinary: See HPI, Irregular period, Vaginal odor, Other Musculoskeletal: No symptoms reported Skin: See HPI, Other - Abscess bilateral external genitalia Hematologic/Lymphatic: No symptoms reported Neurological/Psychological: No symptoms reported -: Yes All other systems reviewed and negative Physical Exam - Vital signs Vitals: Temp Pulse BP Pulse Ox 99.1 F 109 H 154/96 H 97 01/18/17 15:39 01/18/17 15:39 01/18/17 15:39 01/18/17 15:39 Interpretation: Hypertensive, Tachycardic - General General appearance: Alert, Other - Obvious pain or discomfort - Respiratory Respiratory status: No respiratory distress Chest status: Nontender Breath sounds: Normal Chest palpation: Normal - Cardiovascular Rhythm: Tachycardia Heart sounds: Normal auscultation Murmur: No - Genitourinary External exam: Lesions, Other - Examination patient's abscesses show on the right side of patient vaginal area almost groin patient has a large 6 cm long by 3 cm wide abscess that is actively draining a bloody purulent discharge. It has somewhat of a small bowel smell. Draining is minimal secondary to a small hole only. Very tender to touch moderate amount of erythema is noted. The left shows a much more confined area approximately 3 cm round almost the size of a jaw breaker. Is very firm nonfluctuant non-warm but very tender. Patient also is noted to do a razor shaving in the area. - Skin Skin Temperature: Warm Skin irregularity: Erythema Character of irregularity: Petechial Irregularity with: Tenderness, Induration Course - Vital Signs Vital signs: Temp Pulse Resp BP Pulse Ox 99.1 F 109 H 154/96 H 97 01/18/17 15:39 01/18/17 15:39 01/18/17 15:39 01/18/17 15:39 Procedures - Incision and Drainage Right Lower Labia Time completed: 18:43 - Patient had both abscesses in the lower labial area I&D at one time. Type: Complex Anesthetic type: 1% Lidocaine Blade size: 11 I&D procedure: Betadine prep applied, Iodoform packing placed, Sterile dressing applied Incision Method: Incision made by scalpel Amount/type of drainage: As stated we used a #11 blade and cut into the right side abscess which was Notes: 01/18/17 18:44 As stated we cut into the right side of patient's right abscess on the labia majora where there was already a minute amount of drainage which was spontaneous. We used approximately 3 mL's of 1% lidocaine without epi injected into the local area until we got a nice solid well then we removed waited 2 minutes and use an 11 blade to put in a 1-1/2-2 cm linear puncture laceration into the abscess. This allowed for continued flow of a purulent bloody type of pus. I then applied pressure underneath the abscessed area and worked my way up forcing a thicker more foul-smelling type of pus to come out. Guesstimate of total was approximately 12 cc of this drainage. I then cleaned the area again with sterile 4 x 4's and some Betadine and then used approximately 7 inches of iodoform and placed it inside the right sided abscess. Patient tolerated this without any problem. Likewise on the left side of the left labia majora I injected approximately 1-1/2 cc into this small 3 cm round hard nodule and actually was able to force fluid in and get a good clean welts on top I withdrew the needle and placed in a 1 cm laceration and a large amount of purulent bloody material came out as well along with a dark black core type appearing material. Patient had instant relief with this 1. I then cleaned the area again and flushed with 50 mL's of normal saline and applied approximately 3 inch of iodoform into the area. This was then covered and dressed by the nurse. Patient tolerated the drainage of these 2 abscesses without any complications. Discharge - Discharge Clinical Impression: Abscess of left genital labia, Abscess of right genital labia Condition: Good Disposition: HOME, SELF-CARE Instructions: Abscess ([facility]), Cephalexin ([facility]), Post Incision and Drainage, Oral Narcotic Medication ([facility]) Additional Instructions: As we discussed home and use warm moist compresses in the area 3 times a day. As we discussed this is by a washcloth or rag as warm as you can stand up from the sink without burning herself. Do not place in the microwave. Also as we discussed I want see you back here tomorrow I work between 7 AM and 7 PM and my name is Daniele casillas for me at the front counter so we can reexamine this area. Should you have any problems or concerns tonight if you have a increase in pain discomfort or swelling return to ER earlier. When she does stop and get the antibiotics as we discussed and take both along with the Diflucan tablets we discussed. Again keep the areas clean and dry as possible tonight he may take a shower to run across the top if by chance the packing comes out that is all right just keep the compresses going. Can return tomorrow for a recheck. Prescriptions: Cephalexin Monohydrate [Keflex 500 mg Capsule] 500 mg PO Q6H 5 Days #28 capsule Clindamycin HCl 300 mg PO Q6 #40 capsule Fluconazole [Diflucan] 150 mg PO ONCE PRN #1 tablet PRN Reason: Hydrocodone/Acetaminophen [[place]on 7.5-325 Tablet] 1 each PO Q4 #15 tablet Forms: Elevated Blood Pressure, Smoking Cessation Education
[2017-01-18 19:11] VITALS: BP 109/75
== END 2017-01-18 19:11 | disposition home or self-care (01) ==
LOC: ER 15:21
PROC: 0U9MXZZ Drainage of Vulva, External Approach (ICD-10-PCS; principal; 2017-01-18)
DX: N76.0 Acute vaginitis (principal); E66.01 Morbid (severe) obesity due to excess calories; E11.9 Type 2 diabetes mellitus without complications; Z79.4 Long term (current) use of insulin; F17.210 Nicotine dependence, cigarettes, uncomplicated
CPT/HCPCS: 99283; 87070; 87205; 56405; A6266; J3490; 87075

== ENCOUNTER 2017-01-19 08:14 | Emergency (ER) | payer OTHER ==
[2017-01-19] MEDS ORDERED: ONDANSETRON HCL INJ/PF 4 MG/2 ML SDV IV ONE (09:11)
[2017-01-19] MEDS ORDERED: MORPHINE SULFATE 10 MG/ML INJ IV ONE (09:11)
[2017-01-19 09:43] LABS: APPEARANCE,URINE CLOUDY; BILIRUBIN,URINE NEGATIVE (NEGATIVE); GLUCOSE, URINE >=500 mg/dL (NEGATIVE); KETONES,URINE NEGATIVE (NEGATIVE); LEUKOCYTE ESTERASE,URINE NEGATIVE (NEGATIVE); NITRITE,URINE NEGATIVE (NEGATIVE); PROTEIN,URINE 30 mg/dL (NEGATIVE); URINE SPECIFIC GRAVITY 1.023; UROBILINOGEN,URINE NEGATIVE mg/dL (<2.0)
[2017-01-19 09:47] LABS: BACTERIA,URINE 4+ /HPF
[2017-01-19 10:05] LABS: ABSOLUTE BASOPHILS # (AUTO) 0.1 10^3/uL (0.0-0.2); ABSOLUTE EOSINOPHILS # (AUTO) 0.1 10^3/uL (0.0-0.6); ABSOLUTE LYMPHOCYTES (AUTO) 2.2 10^3/uL (0.5-4.7); ABSOLUTE MONOCYTES (AUTO) 0.7 10^3/uL (0.1-1.4); ABSOLUTE NEUT (AUTO) 7.5 10^3/uL (1.7-8.2); BASOPHILS % (AUTO) 0.5 % (0-2); EOSINOPHILS % (AUTO) 0.7 % (0-6); HEMATOCRIT 42.4 % (36.0-47.0); HEMOGLOBIN 14.7 g/dL (12.0-15.5); HGB HCT DIFFERENCE 1.7; LYMPHOCYTES % (AUTO) 21.2 % (13-45); MEAN CORPUSCULAR HEMOGLOBIN 30.7 pg (27.0-33.4); MEAN CORPUSCULAR HGB CONC 34.7 g/dL (32.0-36.0); MEAN CORPUSCULAR VOLUME 89 fl (80-97); MONOCYTES % (AUTO) 6.2 % (3-13); RED BLOOD COUNT 4.79 10^6/uL (3.72-5.28); RED CELL DISTRIBUTION WIDTH 15.9 % (11.5-14.0); SEGMENTED NEUTROPHILS % (AUTO) 71.4 % (42-78); WHITE BLOOD COUNT 10.6 10^3/uL (4.0-10.5)
[2017-01-19 10:21] LABS: ALANINE AMINOTRANSFERASE 43 U/L (9-52); ALKALINE PHOSPHATASE 76 U/L (38-126); ANION GAP 14 (5-19); ASPARTATE AMINO TRANSFERASE 35 U/L (14-36); BILIRUBIN,DIRECT 0.5 mg/dL (0.0-0.4); BILIRUBIN,TOTAL 1.5 mg/dL (0.2-1.3); BLOOD UREA NITROGEN 23 mg/dL (7-20); CALCIUM 9.2 mg/dL (8.4-10.2); CARBON DIOXIDE 25 mmol/L (22-30); CHLORIDE 96 mmol/L (98-107); GLUCOSE 289 mg/dL (75-110); POTASSIUM 4.5 mmol/L (3.6-5.0)
--- NOTE | 2017-01-19 11:00 | RADIOLOGY REPORT (SQ) ---
EXAM DESCRIPTION: CT ABD/PELVIS WITH IV ONLY COMPLETED DATE/TIME: 01/19/2017 10:51 am REASON FOR STUDY: groin abcess COMPARISON: 10/30/2016 TECHNIQUE: CT scan of the abdomen and pelvis performed using helical scanning technique with dynamic intravenous contrast injection. No oral contrast. Images reviewed with lung, soft tissue, and bone windows. Reconstructed coronal and sagittal MPR images reviewed. Delayed images for evaluation of the urinary system also acquired. All images stored on PACS. All CT scanners at this facility use dose modulation, iterative reconstruction, and/or weight based d osing when appropriate to reduce radiation dose to as low as reasonably achievable (ALARA). [facility]: Dose Right [facility]: CareDose [facility]: Dose Right [facility]: Teradose 4D [facility]: Life800 CONTRAST TYPE AND DOSE: contrast/concentration: Isovue 370.00 mg/ml; Total Contrast Delivered: 100.0 ml; Total Saline Delivered: 70.1 ml RENAL FUNCTION: BUN 23 creatinine 0.7 RADIATION DOSE: . LIMITATIONS: None. FINDINGS: LOWER CHEST: Stable pleural-based nodule right lower lung measuring about 3 mm. LIVER: Normal size. No masses. No dilated ducts. SPLEEN: Normal size. No focal lesions. PANCREAS: No masses. No significant calcifications. No adjacent inflammation or peripancreatic fluid collections. Pancreatic duct not dilated. GALLBLADDER: No identified stones by CT criteria. No inflammatory changes to suggest cholecystitis. ADRENAL GLANDS: No significant masses or asymmetry. RIGHT KIDNEY AND URETER: No solid masses. No significant calcifications. No hydronephrosis or hyd roureter. LEFT KIDNEY AND URETER: No solid masses. No significant calcifications. No hydronephrosis or hydr oureter. AORTA AND VESSELS: No aneurysm. No dissection. Renal arteries, SMA, celiac without stenosis. RETROPERITONEUM: No retroperitoneal adenopathy, hemorrhage or masses. BOWEL AND PERITONEAL CAVITY: No masses or inflammatory changes. No free fluid or peritoneal masses. APPENDIX: Normal. PELVIS: No mass. No free fluid. Normal bladder. ABDOMINAL WALL: No masses. No hernias. BONES: No significant or acute findings. OTHER: Stranding of the fat in the right perineum. No organized fluid collection. IMPRESSION: Right peroneal cellulitis. No deep abscess. TECHNICAL DOCUMENTATION: JOB ID: [id number] Quality ID # [id number]: Final reports with documentation of one or more dose reduction techniques (e.g., Au tomated exposure control, adjustment of the mA and/or kV according to patient size, use of iterative reconstruction technique) 2010 [employer]- All Rights Reserved
[2017-01-19] MEDS ORDERED: NORMAL SALINE 1000 ML 1,000 ML IV ONE (11:08)
--- NOTE | 2017-01-19 11:08 | ER Document Report ---
ED General - General Chief Complaint: Wound Recheck Stated Complaint: RECHECK POSSIBLE ABSCESS Time Seen by Provider: 01/19/17 08:53 Mode of Arrival: Ambulatory Information source: Patient Notes: Patient is a morbidly obese white female 36 years old whom I saw yesterday here in the emergency room and I indeed 2 abscesses in the groin area. Patient was placed on antibiotics and pain medications and I requested her to come back today for a reexamination. I informed her that if it did not appear a lot better we were going to do a more major workup. On my I&D was very difficult secondary to body habitus of the patient I did get a large amount of volume out but I still felt some inflamed tissue or another abscess deeper that I could not appreciate her I&D. Patient reports that she is still hurting and was not able to fill her antibiotics last night because she could not afford them. She also states she spiked a fever today to 101.5. She took Tylenol and it got better. She denies having anything to eat or drink today. TRAVEL OUTSIDE OF THE [place] IN LAST 30 DAYS: No - HPI Patient complains to provider of: Abscess recheck Onset: Other - 2-3 weeks Quality of pain: Sharp, Throbbing Severity: Moderate Pain Level: 3 Associated symptoms: Fever Exacerbated by: Sitting, Walking Relieved by: Supine Similar symptoms previously: Yes Recently seen / treated by doctor: Yes - Related Data Allergies/Adverse Reactions: sulfamethoxazole [From Septra] Allergy (Intermediate, Verified 01/19/17 08:15) Hives trimethoprim [From Septra] Allergy (Intermediate, Verified 01/19/17 08:15) Hives Past Medical History - General Information source: Patient - Social History Smoking Status: Current Every Day Smoker Cigarette use (# per day): Yes - One half pack to a pack a day Chew tobacco use (# tins/day): No Smoking Education Provided: Yes Frequency of alcohol use: Rare Drug Abuse: None Occupation: otr tanker truck driver Lives with: Family Family History: Reviewed & Not Pertinent, Arthritis, CAD, CVA, DM, Hyperlipidemia, Hypertension, Malignancy, Thyroid Disfunction Patient has suicidal ideation: No Patient has homicidal ideation: No - Past Medical History Cardiac Medical History: Reports: Hx Hypertension Pulmonary Medical History: Reports: Hx Asthma Neurological Medical History: Reports: Hx Migraine Endocrine Medical History: Reports: Hx Diabetes Mellitus Type 1, Hx Diabetes Mellitus Type 2 - controlled with diet and insulin, Hx Hypothyroidism Renal/ Medical History: Denies: Hx Peritoneal Dialysis Musculoskeltal Medical History: Reports Hx Arthritis, Reports Hx Musculoskeletal Trauma - Fractured ankle and foot Skin Medical History: Reports Hx Cellulitis - Multiple abscesses Traumatic Medical History: Reports: Hx Fractures - Left ankle and foot Past Surgical History: Reports: Hx Myringotomy, Other - Abscess opened in the OR to the groin - Immunizations Immunizations up to date: Yes Hx Diphtheria, Pertussis, Tetanus Vaccination: Yes Hx Pneumococcal Vaccination: 10/13/06 Review of Systems - Review of Systems Constitutional: Fever EENT: No symptoms reported Cardiovascular: No symptoms reported Respiratory: No symptoms reported Gastrointestinal: No symptoms reported Genitourinary: No symptoms reported Female Genitourinary: Other - Abscess review Musculoskeletal: No symptoms reported Skin: No symptoms reported Hematologic/Lymphatic: No symptoms reported Neurological/Psychological: No symptoms reported -: Yes All other systems reviewed and negative Physical Exam - Vital signs Vitals: Temp Pulse Resp BP Pulse Ox 99.0 F 110 H 16 151/91 H 96 01/19/17 08:16 01/19/17 08:16 01/19/17 08:16 01/19/17 08:16 01/19/17 08:16 Interpretation: Hypertensive, Tachycardic - Notes Notes: As stated earlier patient is coming back for a reevaluation of the abscess in her genital area. Reason for asking patient back was secondary to the fact that could not or do not know if I got the entire abscess or abscesses opened up. With patient's body habitus of being morbidly obese and generalized area there had to make sure we were not dealing with a Daysi's gangrene - General General appearance: Alert, Other - Uncomfortable appearing In distress: None - HEENT Head: Normocephalic, Atraumatic Eyes: Normal Pharynx: Normal Neck: Normal - Respiratory Respiratory status: No respiratory distress Chest status: Nontender Breath sounds: Normal. No: Decreased air movement, Nonproductive cough, Productive cough, Rales, Rhonchi, Stridor, Wheezing, Other Chest palpation: Normal - Cardiovascular Rhythm: Tachycardia Heart sounds: Normal auscultation Murmur: No - Abdominal Inspection: Normal, Morbidly Obese Distension: No distension Bowel sounds: Normal Tenderness: Nontender - Genitourinary External exam: Other - Examination of the to I&D the areas of patient shows that the right labial abscess is improved dramatically there is still the iodoform in place and is still draining slightly. Not as tender to palpation at this time. The right-sided abscess also appears somewhat improved however there is still a feeling of deep induration and possible secondary abscess deeper down. Very tender to touch still. Area around it is erythematous and warm. Drainage is still detected. - Neurological Neuro grossly intact: Yes Cognition: Normal Orientation: AAOx4 [place] Coma Scale Eye Opening: Spontaneous [place] Coma Scale Verbal: Oriented [place] Coma Scale Motor: Obeys Commands [place] Coma Scale Total: 15 Speech: Normal Course - Vital Signs Vital signs: Temp Pulse Resp BP Pulse Ox 99.0 F 110 H 16 151/91 H 96 01/19/17 08:16 01/19/17 08:16 01/19/17 08:16 01/19/17 08:16 01/19/17 08:16 - Laboratory Result Diagrams: 01/19/17 09:40 01/19/17 09:40 Laboratory results interpreted by me: 01/19/17 01/19/17 01/19/17 09:10 09:40 09:40 WBC 10.6 H RDW 15.9 H Sodium 135.0 L Chloride 96 L BUN 23 H Glucose 289 H Total Bilirubin 1.5 H Direct Bilirubin 0.5 H Urine Protein 30 H Urine Glucose (UA) >=500 H Urine Blood SMALL H - Diagnostic Test Radiology reviewed: Reports reviewed - CT of the pelvis shows cellulitis rather than abscess. Specific mention is made of no deep abscess. Discharge - Discharge Clinical Impression: Cellulitis Qualifiers: Site of cellulitis of trunk: groin Condition: Good Disposition: HOME, SELF-CARE Instructions: Cellulitis ([facility]) Additional Instructions: As we discussed home and rest. Use warm moist compresses 3 times a day. Take all of her antibiotics. As we discussed I want should return for follow-up visit in 48 hours. Should you have any concerns spike a fever increased pain or swelling return sooner. If the iodoform string should come out is not a big deal continue with your warm compresses and follow-up as scheduled. Continue all your other medications as discussed. Forms: Elevated Blood Pressure Referrals: DEREK HOOD MD [Primary Care Provider] - Follow up as needed
[2017-01-19 13:26] VITALS: BP 142/78
== END 2017-01-19 13:26 | disposition home or self-care (01) ==
LOC: ER 08:14
DX: L03.314 Cellulitis of groin (principal); N76.4 Abscess of vulva; Z98.890 Other specified postprocedural states; E66.01 Morbid (severe) obesity due to excess calories; R50.9 Fever, unspecified; R00.0 Tachycardia, unspecified; E11.9 Type 2 diabetes mellitus without complications; I10 Essential (primary) hypertension; J45.909 Unspecified asthma, uncomplicated; F17.210 Nicotine dependence, cigarettes, uncomplicated; Z71.6 Tobacco abuse counseling; Z88.1 Allergy status to other antibiotic agents
CPT/HCPCS: 99284; 96361; 96374; 96375; 36415; 87040; 85025; 81025; 80053; 81001; 74177; J2270; J2405; J7030

== ENCOUNTER 2017-05-02 12:47 | Emergency (ER) | payer OTHER ==
[2017-05-02] MEDS ORDERED: LIDOCAINE 2% VISCOUS SOLN 20 ML UDCUP PO ONE (13:18)
--- NOTE | 2017-05-02 13:22 | ER Document Report ---
HPI - HPI Pain Level: 4 Notes: Patient is a 37-year-old female with a history of chronic dental pain who presents to the ED complaining of right lower dental pain to #30 intermittently over the last couple weeks. Patient states that she started noticing some swelling to her right lower jaw which prompted her to come to the emergency department. Patient states that she has been calling constantly trying to get [facility], but has had limited success at this time. She is eating and drinking without any difficulties. She is urinating normally and having normal bowel movements. She denies any smoking or IV drug use. Patient admits to an allergy to Bactrim. Denies any headache, fever, neck pain, URI, sore throat, chest pain, palpitations, syncope, cough, shortness of breath, wheeze, dyspnea, abdominal pain, nausea/vomiting/diarrhea, urinary retention, dysuria, hematuria, or rash. Patient has a past medical history significant for hypertension and type 2 diabetes. - ROS Systems Reviewed and Negative: Yes All other systems reviewed and negative - REPRODUCTIVE Reproductive: DENIES: : Past Medical History - Social History Smoking Status: Never Smoker Family History: Reviewed & Not Pertinent, Arthritis, CAD, CVA, DM, Hyperlipidemia, Hypertension, Malignancy, Thyroid Disfunction - Past Medical History Cardiac Medical History: Reports: Hx Hypertension Pulmonary Medical History: Reports: Hx Asthma Neurological Medical History: Reports: Hx Migraine Endocrine Medical History: Reports: Hx Diabetes Mellitus Type 1, Hx Diabetes Mellitus Type 2 - controlled with diet and insulin, Hx Hypothyroidism Renal/ Medical History: Denies: Hx Peritoneal Dialysis Musculoskeltal Medical History: Reports Hx Arthritis, Reports Hx Musculoskeletal Trauma - Fractured ankle and foot Skin Medical History: Reports Hx Cellulitis - Multiple abscesses Traumatic Medical History: Reports: Hx Fractures - Left ankle and foot Past Surgical History: Reports: Hx Myringotomy, Other - Abscess opened in the OR to the groin - Immunizations Immunizations up to date: Yes Hx Diphtheria, Pertussis, Tetanus Vaccination: Yes Hx Pneumococcal Vaccination: 10/13/06 Vertical Provider Document - CONSTITUTIONAL Agree With Documented VS: Yes Notes: PHYSICAL EXAMINATION: GENERAL: Well-appearing, well-nourished and in no acute distress. HEAD: Atraumatic, normocephalic. EYES: Pupils equal round and reactive to light, extraocular movements intact, sclera anicteric, conjunctiva are normal. ENT: EAC clear b/l. TM's intact b/l without erythema, fluid, or perforation. Nares patent and without discharge. oropharynx clear without exudates. No tonsilar hypertrophy or erythema. Moist mucous membranes. No sinus tenderness. Uvula midline. No palatine shift. No tongue protrusion. No respiratory compromise. Mouth: Poor dentition. + mild decay and mild gingivitis. No obvious abscess or discharge noted. No facial swelling. + tenderness to tooth #30. NECK: Normal range of motion, supple without lymphadenopathy. No rigidity/ meningismus. LUNGS: Breath sounds clear to auscultation bilaterally and equal. No wheezes rales or rhonchi. HEART: Regular rate and rhythm without murmurs, rubs, gallops. NEUROLOGICAL: Cranial nerves grossly intact. Normal speech, normal gait. Normal sensory, motor exams PSYCH: Normal mood, normal affect. SKIN: Warm, Dry, normal turgor, no rashes or lesions noted. - INFECTION CONTROL TRAVEL OUTSIDE OF THE [place] IN LAST 30 DAYS: No Course - Re-evaluation Re-evalutation: 05/02/17 13:20 Patient is an afebrile, well-hydrated, 37-year-old female who presents to the ED with dental pain to #30, suspect nerve root etiology versus infection. Vitals are acceptable. PE is otherwise unremarkable. No incision and drainage is warranted at this time. No other labs or imaging warranted at this time. I will send her home with a prescription for penicillin and lidocaine. Low suspicion for any meningitis, sepsis, peritonsillar/pharyngeal abscess, respiratory compromise, Sg's, temporal arteritis, or other emergent systemic condition at this time. Patient is aware this condition can change from initial presentation and she needs to monitor symptoms closely. Conservative measures otherwise for symptoms. Call to schedule an appointment with a dentist for further evaluation and management. Recheck with your PCM this week as well. Return to the ED with any worsening/concerning symptoms otherwise as reviewed in discharge. Patient is in agreement. Discharge - Discharge Clinical Impression: Toothache Condition: Stable Disposition: HOME, SELF-CARE Instructions: Toothache ([facility]), Penicillin V K ([facility]), Dentist Additional Instructions: [place] and floss twice daily Maintain fluid intake Take antibiotics as directed Mouthwash, salt water gargles, peroxide rinse as needed Tylenol/ibuprofen as needed Recheck with PCM this week Call today/tomorrow and schedule an appointment with your dentist for further evaluation Return to the ED with any worsening symptoms and/or development of fever, headache, facial swelling, swelling of lips/tongue/throat, trouble swallowing, drooling, hoarseness, neck pain/stiffness, chest pain, palpitations, syncope, shortness of breath, trouble breathing, abdominal pain, n/v/d, numbness/tingling , or other worsening symptoms that are concerning to you. Prescriptions: Penicillin V Potassium [Penicillin Vk 250 mg Tablet] 500 mg PO BID #40 tablet Forms: Elevated Blood Pressure Referrals: [facility] [Provider Group] - Follow up as needed
[2017-05-02 13:49] VITALS: BP 136/88
== END 2017-05-02 13:50 | disposition home or self-care (01) ==
LOC: ER 12:47
DX: K08.9 Disorder of teeth and supporting structures, unspecified (principal); G89.29 Other chronic pain; I10 Essential (primary) hypertension; E11.9 Type 2 diabetes mellitus without complications; E03.9 Hypothyroidism, unspecified
CPT/HCPCS: 99282; J3490

== ENCOUNTER 2017-07-09 16:59 | Emergency (ER) | payer OTHER ==
[2017-07-09] MEDS ORDERED: IPRATROPIUM/ALBUTEROL 0.5-2.5 MG/3 ML AMPUL NEB ONE (18:37)
[2017-07-09] MEDS ORDERED: PREDNISONE 20 MG TABLET PO ONE (18:37)
[2017-07-09] MEDS ORDERED: BENZONATATE 100 MG CAPSULE PO ONE (18:39)
--- NOTE | 2017-07-09 18:41 | ER Document Report ---
ED Medical Screen (RME) - General Chief Complaint: Sore Throat Stated Complaint: THROAT PAIN/ COUGHING Time Seen by Provider: 07/09/17 18:28 Notes: RAPID MEDICAL EVALUATION DISCLOSURE I have seen this patient as part of a Rapid Medical Evaluation and, if applicable, placed any initially appropriate orders. The patient will be seen and fully evaluated, including a full history and physical exam, by a provider ( in Main ED or Fast Track) when a room becomes available. 37-year-old female PMH asthma here with complaints of cough congestion runny nose sore throat wheezing shortness of breath chest tightness ongoing for the past 4-5 days. She does use her inhaler with minimal relief. She is also used NyQuil and Benadryl. She has 2 people in her house to have pneumonia. EXAM Minimal oropharyngeal erythema no tonsillar swelling or exudates End expiratory wheezes diffusely Minimally diminished aeration Mild to moderate tachycardia TRAVEL OUTSIDE OF THE [place] IN LAST 30 DAYS: No - Related Data Allergies/Adverse Reactions: sulfamethoxazole [From Septra] Allergy (Intermediate, Verified 07/09/17 18:25) Hives trimethoprim [From Septra] Allergy (Intermediate, Verified 07/09/17 18:25) Hives Past Medical History - Social History Chew tobacco use (# tins/day): No Frequency of alcohol use: None Drug Abuse: None Family history: Reviewed & Not Pertinent - Past Medical History Cardiac Medical History: Reports: Hx Hypertension Pulmonary Medical History: Reports: Hx Asthma, Hx Bronchitis, Hx Pneumonia Neurological Medical History: Reports: Hx Migraine Endocrine Medical History: Reports: Hx Diabetes Mellitus Type 1, Hx Diabetes Mellitus Type 2 - controlled with diet and insulin, Hx Hypothyroidism Renal/ Medical History: Denies: Hx Peritoneal Dialysis Musculoskeltal Medical History: Reports Hx Arthritis, Reports Hx Musculoskeletal Trauma - Fractured ankle and foot Skin Medical History: Reports Hx Cellulitis - Multiple abscesses Traumatic Medical History: Reports: Hx Fractures - Left ankle and foot Past Surgical History: Reports: Hx Myringotomy, Other - Abscess opened in the OR to the groin - Immunizations Immunizations up to date: Yes Hx Diphtheria, Pertussis, Tetanus Vaccination: Yes Physical Exam - Vital signs Vitals: Temp Pulse Resp BP Pulse Ox 98.8 F 117 H 24 H 140/92 H 96 07/09/17 17:35 07/09/17 17:35 07/09/17 17:35 07/09/17 17:35 07/09/17 17:35 Course - Vital Signs Vital signs: Temp Pulse Resp BP Pulse Ox 98.8 F 117 H 24 H 140/92 H 96 07/09/17 17:35 07/09/17 17:35 07/09/17 17:35 07/09/17 17:35 07/09/17 17:35
--- NOTE | 2017-07-09 19:04 | RADIOLOGY REPORT (SQ) ---
EXAM DESCRIPTION: CHEST 2 VIEWS COMPLETED DATE/TIME: 07/09/2017 6:56 pm REASON FOR STUDY: eval pneumonia COMPARISON: 10/30/2016 EXAM PARAMETERS: NUMBER OF VIEWS: two views TECHNIQUE: Digital Frontal and Lateral radiographic views of the chest acquired. RADIATION DOSE: NA LIMITATIONS: none FINDINGS: LUNGS AND PLEURA: No opacities, masses or pneumothorax. No pleural effusion. MEDIASTINUM AND HILAR STRUCTURES: No masses or contour abnormalities. HEART AND VASCULAR STRUCTURES: Heart normal size. No evidence for failure. BONES: No acute findings. HARDWARE: None in the chest. OTHER: No other significant finding. IMPRESSION: NO ACUTE RADIOGRAPHIC FINDING IN THE CHEST. TECHNICAL DOCUMENTATION: JOB ID: [id number] [employer]- All Rights Reserved Reading location - IP/workstation name: [email or web address]
[2017-07-09 19:35] LABS: ANION GAP 14 (5-19); BLOOD UREA NITROGEN 16 mg/dL (7-20); CALCIUM 10.1 mg/dL (8.4-10.2); CARBON DIOXIDE 26 mmol/L (22-30); CHLORIDE 97 mmol/L (98-107); GLUCOSE 262 mg/dL (75-110); POTASSIUM 4.3 mmol/L (3.6-5.0); SODIUM 137.3 mmol/L (137-145)
[2017-07-09 19:45] LABS: ABSOLUTE BASOPHILS # (AUTO) 0.1 10^3/uL (0.0-0.2); ABSOLUTE EOSINOPHILS # (AUTO) 0.2 10^3/uL (0.0-0.6); ABSOLUTE LYMPHOCYTES (AUTO) 4.6 10^3/uL (0.5-4.7); ABSOLUTE MONOCYTES (AUTO) 0.9 10^3/uL (0.1-1.4); ABSOLUTE NEUT (AUTO) 9.1 10^3/uL (1.7-8.2); BASOPHILS % (AUTO) 0.8 % (0-2); EOSINOPHILS % (AUTO) 1.1 % (0-6); HEMATOCRIT 49.8 % (36.0-47.0); HEMOGLOBIN 16.6 g/dL (12.0-15.5); LYMPHOCYTES % (AUTO) 30.9 % (13-45); MEAN CORPUSCULAR HEMOGLOBIN 29.3 pg (27.0-33.4); MEAN CORPUSCULAR HGB CONC 33.2 g/dL (32.0-36.0); MEAN CORPUSCULAR VOLUME 88 fl (80-97); MONOCYTES % (AUTO) 5.9 % (3-13); PLATELET COUNT 314 10^3/uL (150-450); RED BLOOD COUNT 5.65 10^6/uL (3.72-5.28); RED CELL DISTRIBUTION WIDTH 16.7 % (11.5-14.0); SEGMENTED NEUTROPHILS % (AUTO) 61.3 % (42-78); TOTAL CELLS COUNTED % (AUTO) 100 %; WHITE BLOOD COUNT 14.8 10^3/uL (4.0-10.5)
--- NOTE | 2017-07-09 20:31 | ER Document Report ---
ED General - General Chief Complaint: Sore Throat Stated Complaint: THROAT PAIN/ COUGHING Time Seen by Provider: 07/09/17 18:28 Mode of Arrival: Ambulatory Information source: Patient Notes: 37-year-old female who presents with complaint of productive cough 2 weeks. Patient reports that over the last 4 days she has developed sore throat with fever and over the last 2 days she has began wheezing. Patient does have a past medical history of asthma, "borderline" diabetes, hypertension and neuropathy. Patient reports that she is out of her albuterol nebulizer for home however she has been using her albuterol inhaler a few times daily. Patient denies any nausea vomiting diarrhea or any other symptoms. TRAVEL OUTSIDE OF THE [place] IN LAST 30 DAYS: No - Related Data Allergies/Adverse Reactions: sulfamethoxazole [From Octra] Allergy (Intermediate, Verified 07/09/17 18:25) Hives trimethoprim [From Octra] Allergy (Intermediate, Verified 07/09/17 18:25) Hives Past Medical History - General Information source: Patient - Social History Smoking Status: Current Every Day Smoker Chew tobacco use (# tins/day): No Frequency of alcohol use: None Drug Abuse: None Lives with: Family Family History: Reviewed & Not Pertinent, Arthritis, CAD, CVA, DM, Hyperlipidemia, Hypertension, Malignancy, Thyroid Disfunction Patient has suicidal ideation: No Patient has homicidal ideation: No - Past Medical History Cardiac Medical History: Reports: Hx Hypertension Pulmonary Medical History: Reports: Hx Asthma, Hx Bronchitis, Hx Pneumonia Neurological Medical History: Reports: Hx Migraine Endocrine Medical History: Reports: Hx Diabetes Mellitus Type 2, Hx Hypothyroidism Renal/ Medical History: Denies: Hx Peritoneal Dialysis Musculoskeltal Medical History: Reports Hx Arthritis, Reports Hx Musculoskeletal Trauma - Fractured ankle and foot Skin Medical History: Reports Hx Cellulitis - Multiple abscesses Traumatic Medical History: Reports: Hx Fractures - Left ankle and foot Past Surgical History: Reports: Hx Myringotomy, Other - Abscess opened in the OR to the groin - Immunizations Immunizations up to date: Yes Hx Diphtheria, Pertussis, Tetanus Vaccination: Yes Hx Pneumococcal Vaccination: 10/13/06 Review of Systems - Review of Systems Constitutional: See HPI EENT: No symptoms reported Cardiovascular: No symptoms reported Respiratory: See HPI Gastrointestinal: No symptoms reported Genitourinary: No symptoms reported Female Genitourinary: No symptoms reported Musculoskeletal: No symptoms reported Skin: No symptoms reported Hematologic/Lymphatic: No symptoms reported Neurological/Psychological: No symptoms reported Physical Exam - Vital signs Vitals: Temp Pulse Resp BP Pulse Ox 98.8 F 117 H 24 H 140/92 H 96 07/09/17 17:35 07/09/17 17:35 07/09/17 17:35 07/09/17 17:35 07/09/17 17:35 - Notes Notes: PHYSICAL EXAMINATION: GENERAL: Well-appearing, well-nourished and in no acute distress. HEAD: Atraumatic, normocephalic. EYES: Pupils equal round and reactive to light, extraocular movements intact, conjunctiva are normal. ENT: Nares patent, oropharynx clear without exudates. Moist mucous membranes. NECK: Normal range of motion, supple without lymphadenopathy LUNGS: Mild expiratory wheezes bilaterally, no rales or rhonchi. HEART: Regular rate and rhythm without murmurs ABDOMEN: Soft, nontender, nondistended abdomen. No guarding, no rebound. No masses appreciated. Female : deferred Musculoskeletal: Normal range of motion, no pitting or edema. No cyanosis. NEUROLOGICAL: Cranial nerves grossly intact. Normal speech, normal gait. Normal sensory, motor exams PSYCH: Normal mood, normal affect. SKIN: Warm, Dry, normal turgor, no rashes or lesions noted. Course - Re-evaluation Re-evalutation: 37-year-old female who presents with chief complaint of productive cough 2 week which has now developed to wheezing with fever for the last 2 days. Patient reports he does have a history of asthma and has been using her albuterol inhaler more frequently however she states that she is out of her albuterol for the nebulizer machine. On initial exam patient does have mild tachycardia with mild expiratory wheezing however patient after already receiving 2 DuoNeb treatments while in the emergency department as well as 60mg of prednisone. Patient's chest x-ray is negative for any obvious consolidations. Patient does have elevated white blood count but there is no left shift. Rapid strep is negative. Patient's glucose is elevated however patient does have history of diabetes. On the other side patient reports that she is feeling much better after having the breathing treatments were given up front in triage. Will give patient additional breathing treatments while here in the department to clear her wheezing. On reevaluation patient states that she continues to feel better, wheezing has resolved. Heartrate 101. Patient will be started on doxycycline as patient has been sick for a total of 2 weeks with this productive cough that has now developed to a fever and wheezing. Will be treating patient for possible pneumonia with acute exacerbation of asthma. Patient was given strict ED return precautions. Patient does verbalize understanding to same. - Vital Signs Vital signs: Temp Pulse Resp BP Pulse Ox 97.9 F 109 H 24 H 125/101 H 94 07/09/17 21:17 07/09/17 21:17 07/09/17 17:35 07/09/17 21:17 07/09/17 21:17 - Laboratory Result Diagrams: 07/09/17 19:10 07/09/17 19:10 Laboratory results interpreted by me: 07/09/17 07/09/17 19:10 19:10 WBC 14.8 H RBC 5.65 H Hgb 16.6 H Hct 49.8 H RDW 16.7 H Absolute Neutrophils 9.1 H Chloride 97 L Glucose 262 H Discharge - Discharge Clinical Impression: Wheezing Pneumonia Qualifiers: Pneumonia type: due to unspecified organism Laterality: unspecified laterality Lung location: unspecified part of lung Qualified Code(s): J18.9 - Pneumonia, unspecified organism Fever Qualifiers: Fever type: unspecified Qualified Code(s): R50.9 - Fever, unspecified Condition: Stable Disposition: HOME, SELF-CARE Additional Instructions: Pneumonia Your examination indicates that you may have pneumonia. This is an infection of the lung tissue, usually caused by bacteria or a virus. Symptoms include cough, fever, shaking chills, chest pain, shortness of breath, and coughing up bloody sputum. Treatment for bacterial pneumonia includes rest, antibiotics for 10 to 14 days, increasing your clear liquid intake, a cool mist humidifier at your bedside, and fever medication. Often, a repeat chest X-ray is performed in a few weeks--even if you feel better--to ascertain whether the infection has completely resolved and no underlying lung problem is present. You should call the physician if you develop persistent vomiting, high fever that does not respond to fever medication, increasing shortness of breath , confusion, or lethargy. Also, failure to improve within two to three days is an indication for re-examination. Please take medications as prescribed. Follow-up with your primary care provider in the next 3-5 days for a recheck. Return to the emergency department if you develop worsening shortness of breath, persistent wheezing, fever uncontrolled with Tylenol or ibuprofen or any other symptoms that are concerning to you. Prescriptions: Benzonatate [Tessalon Perle 100 mg Capsule] 100 mg PO Q8HP PRN #40 cap PRN Reason: Albuterol Sulfate [Proair HFA Inhalation Aerosol 8.5 gm MDI] 2 puff IH Q4H PRN # 1 mdi PRN Reason: Albuterol Sulfate [Albuterol Sulfate 2.5mg/3 mL] 1 vial IH Q4 PRN #30 vial PRN Reason: For Wheezing Doxycycline Hyclate [Vibramycin] 100 mg PO BID #14 capsule Prednisone 10 mg PO ASDIR #21 tablet
[2017-07-09 21:19] VITALS: BP 125/101
[2017-07-09] MEDS ORDERED: ALBUTEROL SULFATE 0.083% NEB 2.5 MG/3 ML AMPUL NEB ONE (22:02)
[2017-07-09] MEDS ORDERED: DOXYCYCLINE HYCLATE 100 MG TABLET PO ONE (22:02)
== END 2017-07-09 23:10 | disposition home or self-care (01) ==
LOC: ER 16:59
DX: J18.9 Pneumonia, unspecified organism (principal); J45.909 Unspecified asthma, uncomplicated; R05 Cough; J02.9 Acute pharyngitis, unspecified; R50.9 Fever, unspecified; I10 Essential (primary) hypertension; F17.200 Nicotine dependence, unspecified, uncomplicated; Z88.1 Allergy status to other antibiotic agents
CPT/HCPCS: 94640 ×2; 99285; 36415; 87040; 87070; 87880; 85025; 80048; 71046; J7512; J7620